=== PATIENT | female | born 1945 | race Caucasian/White ===

== ENCOUNTER → 2018-08-06 | Outpatient (CLI) | payer MEDICARE, OTHER ==
[2018-08-06 15:09] LABS: HEMOGLOBIN 12.5 g/dl (12.0-15.5); MEAN CORPUSCULAR HEMOGLOBIN 30.9 pg (27.0-33.0); MEAN CORPUSCULAR HGB CONC 33.8 g/dl (32.0-36.5); MEAN CORPUSCULAR VOLUME 91.4 fl (80.0-96.0); PLATELET COUNT, AUTOMATED 325 10^3/uL (150-450); RED BLOOD COUNT 4.05 10^6/uL (4.00-5.40); RED CELL DISTRIBUTION WIDTH 15.1 % (11.5-14.5); WHITE BLOOD COUNT 10.9 10^3/uL (4.0-10.0)
[2018-08-06 15:21] LABS: INR 0.97
[2018-08-06 15:39] LABS: ERYTHROCYTE SEDIMENTATION RATE 27 mm/hr (0-30)
[2018-08-06 23:08] LABS: ALBUMIN 3.7 GM/DL (3.2-5.2); ALBUMIN/GLOBULIN RATIO 1.03 (1.00-1.93); ALKALINE PHOSPHATASE 83 U/L (45-117); ALT/SGPT 43 U/L (12-78); ANION GAP 8 MEQ/L (8-16); AST/SGOT 27 U/L (7-37); BILIRUBIN,TOTAL 0.2 MG/DL (0.2-1.0); BLOOD UREA NITROGEN 21 MG/DL (7-18); CALCIUM LEVEL 8.9 MG/DL (8.8-10.2); CARBON DIOXIDE LEVEL 26 MEQ/L (21-32); CHLORIDE LEVEL 104 MEQ/L (98-107); CREATININE FOR GFR 1.06 MG/DL (0.55-1.30); GLOMERULAR FILTRATION RATE 54.4 (>39); GLUCOSE, FASTING 122 MG/DL (70-100); POTASSIUM SERUM 4.1 MEQ/L (3.5-5.1); SODIUM LEVEL 138 MEQ/L (136-145); TOTAL PROTEIN 7.3 GM/DL (6.4-8.2)
== END ==
LOC: M LAB 14:45
DX: Z01.818 Encounter for other preprocedural examination (principal); M17.11 Unilateral primary osteoarthritis, right knee
CPT/HCPCS: 71046

== ENCOUNTER 2018-08-26 05:49 | Inpatient (IN) | payer MEDICARE, OTHER ==
[2018-08-26] MEDS ORDERED: LIDOCAINE 1% MDV 20ML VIAL SQ (06:00)
[2018-08-26] MEDS ORDERED: PROPOFOL 200 MG/20 ML VIAL As Ordered ×2 (06:16→08:48)
[2018-08-26] MEDS ORDERED: LIDOCAINE 2% INJ 100 MG/5 ML SDV (FOR ANES.) As Ordered (06:16)
[2018-08-26] MEDS ORDERED: MIDAZOLAM INJ 2 MG/2 ML VIAL (J2250) As Ordered ×2 (06:19→06:44)
[2018-08-26] MEDS ORDERED: fentaNYL 100 MCG/2 ML INJECTION (J3010) As Ordered (06:44)
[2018-08-26] MEDS: ACETAMINOPHEN 500 MG TAB PO (06:44)
[2018-08-26] MEDS: LR 1,000 ML IV ×4 (07:00→22:30)
[2018-08-26] MEDS: fentaNYL 100 MCG/2 ML INJECTION (J3010) IV (07:04)
[2018-08-26] MEDS: MIDAZOLAM INJ 2 MG/2 ML VIAL (J2250) IV (07:04)
[2018-08-26] MEDS: BUPIVACAINE HCL 0.25% 30 ML VIAL As Ordered (07:16)
[2018-08-26] MEDS: TRANEXAMIC ACID 100 MG/ML 10ML VIAL As Ordered (07:16)
[2018-08-26] MEDS: BUPIVACAINE LIPOSOME/PF 1.3% 20ML VIAL (13.3MG/ML)(EXPAREL)(C9290 PER1MG) As Ordered (07:17)
[2018-08-26] MEDS: EPINEPHrine INJ 1 MG/ML 1ML AMP As Ordered (07:17)
[2018-08-26] MEDS: ceFAZolin 1GM INJ (J0690 PER 500MG) As Ordered (07:17)
[2018-08-26] MEDS ORDERED: ROPIvacaine 0.5% 30 ML INJECTION (J2795 PER 1MG) (07:57)
[2018-08-26] MEDS ORDERED: dexameTHASONE 10 MG/1 ML VIAL PRES.FREE (J1100) (07:57)
[2018-08-26] MEDS ORDERED: BUPIVACAINE/DEXTROSE 0.75% 2 ML AMP As Ordered (08:22)
[2018-08-26] MEDS ORDERED: ePHEDrine SULFATE 25 MG/5 ML(5MG/ML) SYRINGE As Ordered ×2 (08:22)
[2018-08-26] MEDS ORDERED: MORPHINE 10 MG/ML 1ML VIAL (J2270) As Ordered (09:08)
[2018-08-26] MEDS ORDERED: MORPHINE 1MG/ML IN 0.9% NACL 100ML IV BAG As Ordered (09:09)
[2018-08-26] MEDS: MORPHINE 1MG/ML IN 0.9% NACL 100ML IV BAG IV (09:45)
[2018-08-26] MEDS ORDERED: ONDANSETRON 4MG/2ML VIAL (J2405) IV ×2 (10:00)
[2018-08-26] MEDS ORDERED: EPIDURAL/PCA KEYS XX (10:00)
[2018-08-26] MEDS ORDERED: LORATADINE 10 MG TAB PO (10:00)
[2018-08-26] MEDS ORDERED: FLEET ENEMA PR (10:00)
[2018-08-26] MEDS ORDERED: diphenhydrAMINE INJ 50MG/ML VIAL (J1200) IV (10:00)
[2018-08-26] MEDS ORDERED: fentaNYL 100 MCG/2 ML INJECTION (J3010) IV (10:00)
[2018-08-26] MEDS ORDERED: NALBUPHINE HCL 10 MG/ML AMP (J2300) IV (10:00)
[2018-08-26] MEDS ORDERED: NALOXONE INJ 0.4 MG/1 ML VIAL (J2310) IV (10:00)
[2018-08-26] MEDS ORDERED: ACETAMINOPHEN TAB 650MG DOSE (2X325MG) PO (10:00)
[2018-08-26] MEDS: MULTIVITAMINS/MINERALS THERAP 1 TAB PO (11:21)
[2018-08-26] MEDS: MAGNESIUM CHLORIDE 64 MG TABCR (SLO MAG) PO (11:22)
[2018-08-26] MEDS: CitaloPRAM (CeleXA) 10 MG TABLET PO (11:22)
[2018-08-26] MEDS: OMEGA-3 1000MG CAPSULE PO (11:22)
[2018-08-26] MEDS: FOLIC ACID 1 MG TAB PO (11:22)
[2018-08-26] MEDS: VITAMIN D 1,000 INTERNATIONAL UNITS TABLET PO (11:22)
[2018-08-26] MEDS: OCUVITE 1 TAB PO (11:22)
[2018-08-26] MEDS ORDERED: FLUTICASONE PROP 0.05% NASAL SPRAY 16 GM (FLONASE) NARES (11:45)
[2018-08-26] MEDS: FOSINOPRIL 20 MG TAB PO (13:37)
[2018-08-26] MEDS: CHLORTHALIDONE 12.5MG PER 1/2 TABLET PO (13:37)
[2018-08-27] MEDS: LEVOTHYROXINE 75MCG TABLET (0.075MG) PO (05:36)
[2018-08-27] MEDS ORDERED: PERCOCET 5MG/325MG TAB PO (06:30)
[2018-08-27 07:47] LABS: HEMATOCRIT 32.3 % (36.0-47.0); HEMOGLOBIN 10.8 g/dl (12.0-15.5); MEAN CORPUSCULAR HEMOGLOBIN 30.5 pg (27.0-33.0); MEAN CORPUSCULAR HGB CONC 33.4 g/dl (32.0-36.5); MEAN CORPUSCULAR VOLUME 91.2 fl (80.0-96.0); PLATELET COUNT, AUTOMATED 302 10^3/uL (150-450); RED BLOOD COUNT 3.54 10^6/uL (4.00-5.40); RED CELL DISTRIBUTION WIDTH 14.8 % (11.5-14.5); WHITE BLOOD COUNT 16.1 10^3/uL (4.0-10.0)
[2018-08-27 08:16] LABS: ANION GAP 7 MEQ/L (8-16); BLOOD UREA NITROGEN 16 MG/DL (7-18); CALCIUM LEVEL 8.4 MG/DL (8.8-10.2); CARBON DIOXIDE LEVEL 28 MEQ/L (21-32); CHLORIDE LEVEL 99 MEQ/L (98-107); CREATININE FOR GFR 0.86 MG/DL (0.55-1.30); GLOMERULAR FILTRATION RATE > 60.0 (>39); GLUCOSE, FASTING 145 MG/DL (70-100); POTASSIUM SERUM 3.7 MEQ/L (3.5-5.1); SODIUM LEVEL 134 MEQ/L (136-145)
[2018-08-27] MEDS: OMEGA-3 1000MG CAPSULE PO (08:33)
[2018-08-27] MEDS: MAGNESIUM CHLORIDE 64 MG TABCR (SLO MAG) PO (08:34)
[2018-08-27] MEDS: PERCOCET 5MG/325MG TAB PO ×4 (08:34→21:52)
[2018-08-27] MEDS: VITAMIN D 1,000 INTERNATIONAL UNITS TABLET PO (08:35)
[2018-08-27] MEDS: FOSINOPRIL 20 MG TAB PO (08:35)
[2018-08-27] MEDS: SENOKOT S TAB PO ×2 (08:35→21:52)
[2018-08-27] MEDS: CitaloPRAM (CeleXA) 10 MG TABLET PO (08:35)
[2018-08-27] MEDS: ATORVASTATIN 20 MG TAB PO (08:35)
[2018-08-27] MEDS: CHLORTHALIDONE 12.5MG PER 1/2 TABLET PO (08:36)
[2018-08-27] MEDS: FOLIC ACID 1 MG TAB PO (08:37)
[2018-08-27] MEDS: OCUVITE 1 TAB PO (08:37)
[2018-08-27] MEDS: OMEPRAZOLE 20 MG CAP PO (08:37)
[2018-08-27] MEDS: MULTIVITAMINS/MINERALS THERAP 1 TAB PO (08:37)
[2018-08-27] MEDS: MIRALAX *UNIT DOSE* 17GM PACKET PO (08:38)
[2018-08-27] MEDS: MOM 30ML SUSPENSION UDC PO (08:38)
[2018-08-27] MEDS ORDERED: NON-FORMULARY 1 EA EA (09:00)
[2018-08-27] MEDS ORDERED: CHLORTHALIDONE 25 MG TAB PO (09:00)
[2018-08-27] MEDS: ONDANSETRON 4 MG TAB (S0181) PO ×3 (13:18→21:51)
[2018-08-27] MEDS: RIVAROXABAN 10 MG TAB (XARELTO) PO (18:00)
[2018-08-28] MEDS: ONDANSETRON 4 MG TAB (S0181) PO ×3 (02:36→14:29)
[2018-08-28] MEDS: PERCOCET 5MG/325MG TAB PO ×3 (02:37→14:28)
[2018-08-28] MEDS: LEVOTHYROXINE 75MCG TABLET (0.075MG) PO (05:55)
[2018-08-28 06:13] LABS: HEMATOCRIT 29.6 % (36.0-47.0); HEMOGLOBIN 9.7 g/dl (12.0-15.5); MEAN CORPUSCULAR HEMOGLOBIN 29.3 pg (27.0-33.0); MEAN CORPUSCULAR HGB CONC 32.8 g/dl (32.0-36.5); MEAN CORPUSCULAR VOLUME 89.4 fl (80.0-96.0); PLATELET COUNT, AUTOMATED 273 10^3/uL (150-450); RED BLOOD COUNT 3.31 10^6/uL (4.00-5.40); RED CELL DISTRIBUTION WIDTH 14.6 % (11.5-14.5); WHITE BLOOD COUNT 16.1 10^3/uL (4.0-10.0)
[2018-08-28 06:18] LABS: ANION GAP 7 MEQ/L (8-16); BLOOD UREA NITROGEN 14 MG/DL (7-18); CALCIUM LEVEL 8.5 MG/DL (8.8-10.2); CARBON DIOXIDE LEVEL 28 MEQ/L (21-32); CHLORIDE LEVEL 96 MEQ/L (98-107); CREATININE FOR GFR 0.78 MG/DL (0.55-1.30); GLOMERULAR FILTRATION RATE > 60.0 (>39); GLUCOSE, FASTING 132 MG/DL (70-100); POTASSIUM SERUM 3.4 MEQ/L (3.5-5.1); SODIUM LEVEL 131 MEQ/L (136-145)
[2018-08-28] MEDS: OMEGA-3 1000MG CAPSULE PO (07:57)
[2018-08-28] MEDS: FOSINOPRIL 20 MG TAB PO (07:58)
[2018-08-28] MEDS: CHLORTHALIDONE 12.5MG PER 1/2 TABLET PO (07:58)
[2018-08-28] MEDS: FOLIC ACID 1 MG TAB PO (07:58)
[2018-08-28] MEDS: OCUVITE 1 TAB PO (07:59)
[2018-08-28] MEDS: OMEPRAZOLE 20 MG CAP PO (07:59)
[2018-08-28] MEDS: SENOKOT S TAB PO (07:59)
[2018-08-28] MEDS: VITAMIN D 1,000 INTERNATIONAL UNITS TABLET PO (08:00)
[2018-08-28] MEDS: MULTIVITAMINS/MINERALS THERAP 1 TAB PO (08:00)
[2018-08-28] MEDS: MIRALAX *UNIT DOSE* 17GM PACKET PO (08:00)
[2018-08-28] MEDS: CitaloPRAM (CeleXA) 10 MG TABLET PO (08:00)
[2018-08-28] MEDS: MAGNESIUM CHLORIDE 64 MG TABCR (SLO MAG) PO (08:00)
[2018-08-28] MEDS: MOM 30ML SUSPENSION UDC PO (08:04)
== END 2018-08-28 16:15 | disposition home health service (06) | DRG 470 ==
LOC: M OR 05:49 → M MS5PR 10:10
PROC: 0SRC0J9 Replacement of Right Knee Joint with Synthetic Substitute, Cemented, Open Approach (ICD-10-PCS; principal; 2018-08-26 07:26)
DX: M17.11 Unilateral primary osteoarthritis, right knee (principal); Z79.899 Other long term (current) drug therapy; I10 Essential (primary) hypertension; E78.5 Hyperlipidemia, unspecified; E03.9 Hypothyroidism, unspecified; K21.9 Gastro-esophageal reflux disease without esophagitis; M06.9 Rheumatoid arthritis, unspecified

== ENCOUNTER → 2019-02-04 | Outpatient (CLI) | payer MEDICARE, OTHER ==
[~2019-02-04] MED LIST: AMLO5TAB6 PO; CHLO25TA PO; CITA10TA6 PO; CLAR10CA3 PO; FISH120016 PO; FOLI1TAB11 PO; FOSI40TA3 PO; INFL10VL IV; LEVO75TA4 PO; LIPI20TA PO; MELO15TA28 PO; METH2.5T48 PO; MULT1TAB10 PO; MULTCAP PO; NASA1SPR; OCUVTAB4 PO; OMEP40CA2 PO; PERC5TAB12 PO; SLOWTAB2 PO; VITA100067 PO; VITAD1000T PO; XARE10TA PO
[2019-02-04 12:24] LABS: ALBUMIN 3.9 GM/DL (3.2-5.2); ALT/SGPT 46 U/L (12-78); BILIRUBIN,TOTAL 0.3 MG/DL (0.2-1.0); BLOOD UREA NITROGEN 20 MG/DL (7-18); CALCIUM LEVEL 9.4 MG/DL (8.8-10.2); CARBON DIOXIDE LEVEL 26 MEQ/L (21-32); CHLORIDE LEVEL 104 MEQ/L (98-107); CHOLESTEROL LEVEL 208 MG/DL (<200); CHOLESTEROL RISK RATIO 3.151 (<5); CREATININE FOR GFR 0.93 MG/DL (0.55-1.30); GLOMERULAR FILTRATION RATE > 60.0 (>39); GLUCOSE, FASTING 113 MG/DL (70-100); HDL CHOLESTEROL 66 MG/DL (>40); LDL CHOLESTEROL 109 MG/DL (<100); NON-HDL-C 142 MG/DL; POTASSIUM SERUM 4.7 MEQ/L (3.5-5.1); SODIUM LEVEL 136 MEQ/L (136-145); TOTAL PROTEIN 7.8 GM/DL (6.4-8.2); TRIGLYCERIDES LEVEL 165 MG/DL (<150)
[2019-02-04 12:28] LABS: HEMOGLOBIN A1c 6.8 %
[2019-02-04 12:59] LABS: MALB URINE SIEMENS < 5.0 MG/L; MAU/CREAT RATIO 5.4 MCG/MG (0.0-30.0)
== END ==
LOC: M LAB 10:53
PROVIDERS: ATTEND Internal Medicine
DX: I10 Essential (primary) hypertension (principal); R73.01 Impaired fasting glucose; E78.00 Pure hypercholesterolemia, unspecified; E03.9 Hypothyroidism, unspecified

== ENCOUNTER → 2019-02-04 | Outpatient (CLI) | payer MEDICARE, OTHER ==
[2019-02-04 11:34] LABS: HEMATOCRIT 39.5 % (36.0-47.0); HEMOGLOBIN 12.9 g/dl (12.0-15.5); MEAN CORPUSCULAR HEMOGLOBIN 30.3 pg (27.0-33.0); MEAN CORPUSCULAR HGB CONC 32.7 g/dl (32.0-36.5); MEAN CORPUSCULAR VOLUME 92.7 fl (80.0-96.0); PLATELET COUNT, AUTOMATED 400 10^3/uL (150-450); RED BLOOD COUNT 4.26 10^6/uL (4.00-5.40); WHITE BLOOD COUNT 10.9 10^3/uL (4.0-10.0)
[2019-02-04 11:52] LABS: PROTHROMBIN TIME 13.3 SECONDS (12.1-14.4)
[2019-02-04 12:06] LABS: ALBUMIN 3.7 GM/DL (3.2-5.2); ALT/SGPT 47 U/L (12-78); BILIRUBIN,TOTAL 0.3 MG/DL (0.2-1.0); BLOOD UREA NITROGEN 21 MG/DL (7-18); CALCIUM LEVEL 9.3 MG/DL (8.8-10.2); CARBON DIOXIDE LEVEL 27 MEQ/L (21-32); CHLORIDE LEVEL 104 MEQ/L (98-107); GLOMERULAR FILTRATION RATE > 60.0 (>39); GLUCOSE, FASTING 115 MG/DL (70-100); POTASSIUM SERUM 4.8 MEQ/L (3.5-5.1); SODIUM LEVEL 138 MEQ/L (136-145); TOTAL PROTEIN 7.8 GM/DL (6.4-8.2)
--- NOTE | 2019-02-04 13:18 | REP ---
Chest x-ray: Two views. History: Left knee arthritis. Preop. Comparison study: August 06, 2018. Findings: The lungs are well inflated and remain clear. The pleural angles are sharp. Cardiomediastinal silhouette is unremarkable. There are degenerative disc changes in the thoracic spine as before. No acute bony abnormality is seen. Pulmonary vasculature is not increased. Impression: No active disease. Electronically Signed by Feliciano Agudelo MD 02/04/2019 01:09 P
[2019-02-04 14:10] LABS: ERYTHROCYTE SEDIMENTATION RATE 34 mm/hr (0-30)
--- NOTE | 2019-02-04 21:41 | ECGEPIP ---
Stationary ECG Study [facility] Test Date: 2019-02-04 Pat Name: NANCI ARIZA Department: Room: - Gender: F Director Of Loss Prevention: ELMA : 1945 Requested By: Jeff Green Order Number: [id number] Reading MD: Isauro Bravo Measurements Intervals [place] Rate: 91 P: 51 CO: 162 QRS: 9 QRSD: 88 T: 48 QT: 355 QTc: 437 Interpretive Statements SINUS RHYTHM WITH OCCASIONAL VENTRICULAR PREMATURE COMPLEXES Inferior Q waves of uncertain significance Nonspecific ST-T wave abnormalities Electronically Signed On 02-04-2019 21:40:28 EDT by Isauro Bravo
== END ==
LOC: M LAB 10:44
PROVIDERS: ATTEND Orthopaedic Surgery
DX: Z01.818 Encounter for other preprocedural examination (principal); M17.12 Unilateral primary osteoarthritis, left knee; I10 Essential (primary) hypertension; R73.01 Impaired fasting glucose; E78.00 Pure hypercholesterolemia, unspecified

== ENCOUNTER 2019-02-24 09:02 | Inpatient (IN) | payer MEDICARE, OTHER ==
--- NOTE | 2019-02-14 15:30 | HPE ---
DATE OF ADMISSION: 02/24/2019 CHIEF COMPLAINT: Left knee pain. HISTORY OF PRESENT ILLNESS: This is a pleasant, 73-year-old female with progressively worsening left knee pain and stiffness. She has failed to improve with conservative treatment. She has elected for surgery for her continued symptoms. She has pain with weightbearing activities and her activities of daily living. X-rays of her knee are notable for advanced osteoarthritis of the left knee joint. She has consented for a left total knee arthroplasty by Dr. Peter Mike. Medical optimization was performed by Dr. Olsen. ALLERGIES: NONE. CURRENT MEDICATIONS: - folic acid 1 mg a day - omeprazole 40 mg a day - amlodipine 5 mg one-half once a day - fosinopril 40 mg once a day - chlorthalidone 25 mg half a tablet every day - fish oil 1200 mg 2 capsules once a day - Synthroid 75 mcg once a day - multivitamin - PreserVision twice a day - vitamin D 2000 units a day - sublingual magnesium two a day - citalopram 10 mg every other day - Lipitor 20 mg once a day - methotrexate 2.5 mg once a week - Remicade 700 mg every 2 months - meloxicam 15 mg as needed - Claritin 10 mg as needed - Nasacort as needed PAST MEDICAL HISTORY: Includes hypertension, hyperlipidemia, and hypothyroidism. PAST SURGICAL HISTORY: Includes cataract removal both eyes, thyroidectomy, and previous right total knee arthroplasty. SOCIAL HISTORY: Amanda is retired. She does not smoke and she rarely drinks alcohol. Family history is noncontributory. REVIEW OF SYSTEMS: This patient denies chest pain, heart palpitations, cough, wheezing, difficulty breathing and shortness of breath. She denies abdominal pain, nausea, vomiting, diarrhea or constipation. She denies recent upper respiratory infection or urinary tract infection symptoms. She does complain of persistent pain in the left knee. PHYSICAL EXAMINATION: General: She is well-nourished, well-developed, in no acute distress, alert female patient. She ambulates with a moderate limp favoring her left lower extremity. She is not using assistive devices. Vital signs: She is 5 feet 7-1/2 inches tall, weighs 207.2 pounds with a temperature of 98.8, blood pressure 120/50, pulse 68, and respirations of 12. Neck was supple without adenopathy or jugular venous distension. There were no carotid bruits appreciated upon auscultation. Lungs are clear to auscultation without rales or wheeze throughout. Heart: Regular rate and rhythm without murmurs, gallops or rubs. Abdomen: Bowel sounds were present. Extremities: Examination of the knee revealed intact skin. She had decreased range of motion secondary to pain and stiffness. The limb was neurovascularly intact. LABORATORY DATA: Chest x-ray showed no acute cardiopulmonary disease processes. EKG showed sinus rhythm with an occasional premature ventricular contraction (PVC). Glucose 115, BUN 21, creatinine 0.90, sodium 138, potassium 4.8. ProTime 13.3, INR 1.00. White count 10.9, red cell distribution width 15.3, and sed rate of 34. Otherwise, CBC was within normal limits. IMPRESSION: Symptomatic osteoarthritis of the left knee joint. PLAN: Consented for a left total knee arthroplasty by Dr. Peter Mike.
[2019-02-24] VITALS (7 sets, daily range): BP systolic 129–175; BP diastolic 62–82
[~2019-02-24] VITALS: Ht 172.7 cm; Wt 94.7 kg
[2019-02-24] MEDS: MAGNESIUM CHLORIDE 64 MG TABCR (SLO MAG) PO SCH (09:00)
[~2019-02-24 09:02] MED LIST changes: +ACETAMINOPHEN 500 MG TAB PO ONE; +LR 1,000 ML IV SCH
[2019-02-24] MEDS ORDERED: MIDAZOLAM INJ 2 MG/2 ML VIAL (J2250) As Ordered ONE (10:28)
[2019-02-24] MEDS ORDERED: fentaNYL 100 MCG/2 ML INJECTION (J3010) As Ordered ONE ×2 (10:28→12:01)
[2019-02-24] MEDS ORDERED: MIDAZOLAM INJ 2 MG/2 ML VIAL (J2250) IV ONE (11:30)
[2019-02-24] MEDS ORDERED: CLINDAMYCIN INJ 900MG/6ML VIAL As Ordered ONE ×2 (11:32→11:54)
[2019-02-24] MEDS ORDERED: BUPIVACAINE LIPOSOME/PF 1.3% 20ML VIAL (13.3MG/ML)(EXPAREL)(C9290 PER1MG) As Ordered ONE (11:32)
[2019-02-24] MEDS ORDERED: BUPIVACAINE HCL 0.25% 10 ML VIAL As Ordered ONE (11:32)
[2019-02-24] MEDS ORDERED: TRANEXAMIC ACID 100 MG/ML 10ML VIAL As Ordered ONE (11:32)
[2019-02-24] MEDS ORDERED: EPINEPHrine INJ 1 MG/ML 1ML AMP As Ordered ONE (11:32)
[2019-02-24] MEDS ORDERED: fentaNYL 100 MCG/2 ML INJECTION (J3010) IV ONE (12:00)
[2019-02-24] MEDS ORDERED: PROPOFOL 200 MG/20 ML VIAL As Ordered ONE (12:31)
[2019-02-24] MEDS ORDERED: BUPIVACAINE/DEXTROSE 0.75% 2 ML AMP As Ordered ONE (12:31)
[2019-02-24] MEDS ORDERED: ONDANSETRON 4MG/2ML VIAL (J2405) As Ordered ONE (12:31)
[2019-02-24] MEDS ORDERED: dexameTHASONE 4 MG/ML 1ML VIAL (J1100) As Ordered ONE (12:31)
[2019-02-24] MEDS ORDERED: LIDOCAINE 2% INJ 100 MG/5 ML SDV (FOR ANES.) As Ordered ONE (12:31)
[2019-02-24] MEDS ORDERED: KETAMINE HCL 200 MG/20 ML VIAL As Ordered ONE (13:08)
[2019-02-24] MEDS ORDERED: KETOROLAC 60 MG/2 ML VIAL (J1885) As Ordered ONE (13:27)
[2019-02-24] MEDS ORDERED: PHENYLephrine HCL 500 MCG/5 ML (100MCG/ML) SYRINGE (J2370) As Ordered ONE (13:31)
--- NOTE | 2019-02-24 14:04 | RO ---
DATE OF PROCEDURE: 02/24/2019 PREPROCEDURE DIAGNOSIS: Left knee valgus degenerative tricompartmental arthritis. POSTPROCEDURE DIAGNOSIS: Left knee valgus degenerative tricompartmental arthritis. PROCEDURE: Left total knee arthroplasty using a size 5 cruciate retaining femoral component cemented and a size 5 tibial tray and a 8 mm rotating platform polyethylene insert, and a 35 mm polyethylene button. All components were cemented. Prosthesis made by [employer]. It was an Attune knee. SURGEON: Jeff Mike MD MEAT LUGGER: Mr. Wicho Dubose ANESTHESIA: Spinal with left femoral nerve block. COMPLICATIONS: None. ESTIMATED BLOOD LOSS: 20 mL. SPECIMENS: Joint surface. TOURNIQUET TIME: 53 minutes. DESCRIPTION OF PROCEDURE: Antibiotics were given intravenously preoperatively and a successful left femoral nerve block, then spinal anesthetic was induced. Tourniquet placed on the left upper thigh and not inflated. Left lower extremity was carefully prepped and draped in the usual sterile fashion. The leg was elevated, and after appropriate time-out, the tourniquet was inflated to 250 mmHg. A longitudinal incision was made for a medial parapatellar approach to the knee. Bovie cautery was used to coagulate the crossing vessels. Medial parapatellar arthrotomy was performed. Subperiosteal dissection around the proximal, medial and lateral tibia plateau was performed. The patella was everted. The knee was flexed. The anterior cruciate ligament (ACL) was debrided. A drill was placed down the center of the femoral canal followed by the intramedullary fermin and the distal femoral cutting jig set at 5 degree valgus but for a left knee at 9 mm resection level. The block was pinned into position, and then the distal femoral cut performed. I took just enough I felt laterally, but it was quite thin laterally to be expected from this valgus knee. AP sizing jig measured for a size 5, 3 degrees of external rotation were dialed in to be sure that we did not artificially internally rotate the femoral component. The pins were placed. 4-in-1 block applied. The anterior, posterior and chamfer cuts were performed. The jig for the notch plasty was set onto the femur and notch plasty performed. We then exposed the proximal tibia. Used the extramedullary alignment jig to estimate being parallel to the mechanical axis, referencing off the medial tibial condyle at 10 mm and this corresponded to about 3 mm resection off the lateral tibial condyle, which was quite dished. Block was pinned. A secondary check with the extramedullary fermin confirmed that we appeared to be parallel to the mechanical axis. The proximal tibial osteotomy was performed. Lamina catcher helper was then placed laterally and we performed a completion medial meniscectomy with debridement of the posterior and medial osteophytes. We then placed the lamina catcher helper medially and performed a completion lateral meniscectomy with debridement of posterior and lateral osteophytes. Spacer block fit best at 8 mm with good stability and symmetry to varus and valgus stress testing in both flexion and in extension. We then exposed the proximal tibia and sized for a #5 tibial tray, which was pinned into position, followed by the reamer and broach. Trial femoral component was placed, brought the knee into extension, everted the patella, performed patellar osteotomy. Sized for a 35 button. Lug holes drilled. Trial placed. Patellofemoral tracking was anatomic. We drilled the lug holes for the femur. Removed all the trial components. Exparel was placed in the subperiosteal tissues around the distal femur and the proximal tibia. Pk Renaystefaniahipolito mixed the cement on the back table as I prepared the bony surfaces for cementing with a copious amount of pulsatile lavage irrigant solution. Pk Renaystefaniahipolito was also critical to the success of this difficult surgery by helping to manipulate the knee, apply appropriate soft tissue retraction, helped to close the wound, helped to mix the cement, amongst many other tasks to allow me to perform the surgery safely, efficiently and accurately. After all the bony surfaces were dried thoroughly, we then cemented the tibial tray, removed excess cement. Placed the polyethylene. Cemented the femoral component and removed excess cement. Brought the knee into extension. Cemented the patellar button, clamped it and removed excess cement. Held the knee in extension in this position until the cement hardened, as we were awaiting this, we copiously pulsatile lavage, irrigated out the knee joint once again. I then applied tranexamic acid. I closed the apex of the arthrotomy with two #1 PDS sutures. Medial parapatellar area was closed with a #1 PDS suture. The capsule was closed with a running double armed #1 Stratafix. The tourniquet was released. We irrigated between layers. Closed the deep subdermal tissues with interrupted #2-0 PDS suture. Skin was closed with leanne covered by Optifoam, dry sterile bulky dressing. She was then transferred to the recovery room in stable condition. There were no intraoperative complications.
[2019-02-24] MEDS ORDERED: MORPHINE 10 MG/ML 1ML VIAL (J2270) IV PRN (14:15)
[2019-02-24] MEDS ORDERED: LR 1,000 ML IV SCH ×2 (14:15→14:30)
[2019-02-24] MEDS ORDERED: PERCOCET 5MG/325MG TAB PO PRN (14:15)
[2019-02-24] MEDS ORDERED: HYDROMORPHONE HCL 0.5 MG/ 0.5 ML SYRINGE (J1170 PER 1) IV PRN (14:15)
[2019-02-24] MEDS ORDERED: ONDANSETRON 4MG/2ML VIAL (J2405) IV PRN (14:15)
[2019-02-24] MEDS ORDERED: fentaNYL 100 MCG/2 ML INJECTION (J3010) IV PRN (14:15)
[2019-02-24] MEDS ORDERED: METOCLOPRAMIDE INJ 10MG/2ML VIAL (J2765) IV PRN (14:15)
[2019-02-24] MEDS ORDERED: ACETAMINOPHEN TAB 650MG DOSE (2X325MG) PO PRN (14:30)
[2019-02-24] MEDS ORDERED: FLEET ENEMA PR PRN (14:30)
--- NOTE | 2019-02-24 14:43 | REP ---
AP AND LATERAL, LEFT KNEE: HISTORY: Postoperative. The patient is status post left total knee replacement. There is no acute fracture or dislocation. Subcutaneous air and surgical leanne are present in the overlying soft tissue. IMPRESSION: The patient is status post left total knee replacement. There is anatomic alignment. Electronically Signed by Lv Stratton MD 02/24/2019 02:45 P
[2019-02-24] MEDS ORDERED: LORATADINE 10 MG TAB PO PRN (15:15)
[2019-02-24] MEDS ORDERED: FLUTICASONE PROP 0.05% NASAL SPRAY 16 GM (FLONASE) NARES PRN (15:15)
--- NOTE | 2019-02-24 15:27 | CR.PDOC ---
General Date of Consultation: February 24, 2019 Referring Provider: Jeff Mike Primary Care Physician: Bill Olsen Attending Physician: JOSE G GARCIA MD Consultation REASON FOR CONSULTATION/CHIEF COMPLAINT: Management of patients chronic medical conditions post op HISTORY OF PRESENT ILLNESS: Patient is a 73 year old female with a past medical history significant for hypertension, hyperlipidemia, depression, and hypothyroidism who presented to [facility] for elective left total knee arthroplasty. Patient states that at this time she has no pain. She denies any history of pulmonary disease. She denies any history of Obstructive sleep apnea. She denies any cardiac conditions with exception to hypertension. She states that she feels well right now and her pain is adequately controlled. There were no adverse events during her procedure ALLERGIES: Please see below. HOME MEDICATIONS: Please see below. PAST MEDICAL HISTORY: 1. Hypertension 2. Hypothyroidism 3. Hyperlipidemia 4. GERD 5. Depression/Anxiety 6. Cataracts 7. Rheumatoid Arthritis PAST SURGICAL HISTORY: 1. Cataract Removal 2. Thyroidectomy 3. Right total knee arthroplasty 6 months ago 4. Left total knee arthroplasty FAMILY HISTORY: Noncontributory SOCIAL HISTORY: Retired. Denies tobacco use. Occasional/rare alcohol use REVIEW OF SYSTEMS: CONSTITUTIONAL: Denies fevers, chills, nightsweats, unintentional weight loss or weight gain HEENT: Denies cough. Denies sore throat. Denies dysphagia CARDIOVASCULAR: Denies chest pain, palpitations, or feelings of the heart racing RESPIRATORY: Denies shortness of breath. Denies cough GENITOURINARY: Denies increased frequency. Denies dysuria MUSCULOSKELETAL: Admits to chronic left knee pain. GASTROINTESTINAL: Denies abdominal pain, nausea, vomiting, diarrhea, or constipation SKIN: Denies rashes or lesions NEUROLOGICAL: Denies changes in speech or gait. Denies changes in balance. PSYCHIATRIC: Admits to history of depression and anxiety ENDOCRINE: Denies heat intolerance. Denies cold intolerance HEMATOLOGIC/LYMPHATIC: Denies easy bruising or bleeding. Denies history of blood clots in the legs or lungs ALLERGIC/IMMUNOLOGIC: Admits to seasonal allergies PHYSICAL EXAMINATION: VITAL SIGNS: Please see below. GENERAL APPEARANCE: Awake, alert, and oriented. Appears in no acute distress. Lying comfortably in exam bed. HEENT: Atrumatic, normocephalic. Eyes are nonicteric. Trachea is midline. Dentition is fair. Mucous membranes are pink and moist RESPIRATORY: Clear vesicular breath sounds bilaterally with good respiratory effort. No wheezes, rhonci, or rales. CARDIOVASCULAR: Normal S1, S2. Regular rate and rhythm. No clicks, rubs, or murmurs ABDOMEN: Soft, nondistended, nontender to palpation of all 4 quadrants. No rebound tenderness or guarding. Positive bowel sounds throughout EXTREMITIES: No edema. Full and equal pulses in bilateral upper and lower extremities. NEUROLOGICAL: No focal neurological deficits PSYCHIATRIC: Mood and affect appear appropriate LABORATORY DATA: Please see below. ASSESSMENT/PLAN: 1. s/P Left Total Knee Arthroplasty -Patient received an elective left total knee arthroplasty today. There were no adverse events during her procedure. She is being managed by orthopedic surgery -Anticoagulation and pain medication management per Orthopedic surgery. 2. Hypertension -Patient is post-op. Her blood pressure is currently acceptable. She is on Norvasc, Chlorthalidone, and Fosinopril at home. Will hold her home medications. Likely resume tomorrow AM 3. Hypothyroidism -Patient is hypothyroid 2/2 thyroidectomy. Will continue her home synthroid 4. Hyperlipidemia -Patient is on Atorbastatin 20 mg Q2D. Will continue 5. Hypomagnesemia -Patient has history of low magnesium. She takes Magnesium Chloride PO at home. Will continue. -Will monitor electrolytes 6. Seasonal Allergies -Loratadine 10mg -Patient is on Nasacort PRN congestion at home. Will substitute Flonase. 7. Rheumatoid Arthritis -Patient receives Methotrexate, Infliximab Inj, and Meloxicam. -Will hold while hospitalized 8. Depression/Anxiety -Will continue Citalopram 9. GERD -Omeprazole 40mg 10 DVT prophylaxis -Patients anticoagulation is managed by Orthopedics. -Xarelto 10 mg Disposition: Patient has been medical optimized while in the hospital post operatively. Consultation by Orthopedics is greatly appreciated. Vital Signs/I&O Vital Signs Date Time Temp Pulse Resp B/P (MAP) Pulse Ox O2 Delivery O2 Flow Rate FiO2 02/24/19 14:40 84 16 128/62 (84) 96 02/24/19 14:25 97.6 02/24/19 14:10 2 Allergies Coded Allergies: meperidine (Verified Adverse Reaction, Intermediate, passed out, 02/24/19) Penicillins (Verified Adverse Reaction, Mild, potential kidney issues with methotrexate, 02/24/19) Home Medications Scheduled Amlodipine Besylate (Amlodipine Besylate) 5 Mg Tab, 2.5 MG PO QHS, (Reported) Atorvastatin Calcium (Lipitor) 20 Mg Tab, 20 MG PO Q2D, (Reported) Chlorthalidone (Chlorthalidone) 25 Mg Tab, 12.5 MG PO DAILY, (Reported) Citalopram Hydrobromide (Citalopram HBr) 10 Mg Tab, 10 MG PO DAILY, (Reported) Folic Acid (Folic Acid) 1 Mg Tab, 1 MG PO DAILY, (Reported) Fosinopril Sodium (Fosinopril Sodium) 40 Mg Tab, 40 MG PO DAILY, (Reported) Infliximab Injection (Remicade) 100 Mg/10 Ml Vial, 700 MG IV ASDIRECTED, (Reported) Levothyroxine Sodium (Levothyroxine Sodium) 75 Mcg Tab, 75 MCG PO DAILY, (Reported) Magnesium Chloride (Slow-Mag) 1 Tab Tab, 2 TAB PO DAILY, (Reported) Methotrexate Sodium (Methotrexate) 2.5 Mg Tab, 12.5 MG PO QWEEK, (Reported) Multivitamin (Multivitamins) 1 Each Capsule, 1 CAP PO DAILY, (Reported) Parkin-3S/Dha/Epa/Fish Oil (Fish Oil EC 1,200 mg Softgel) 1 Cap Cap, 2 CAP PO DAILY, (Reported) Omeprazole (Omeprazole) 40 Mg Cap, 40 MG PO DAILY, (Reported) Rivaroxaban (Xarelto) 10 Mg Tablet, 10 MG PO DAILY for 12 Days, #12 Vit A/Vit C/Vit E/Zinc/Copper (Preservision Areds Tablet) 1 Tab Tab, 2 TAB PO DAILY, (Reported) Vitamin D (Vitamin D3) 1,000 Unit Tablet, 1,000 UNITS PO DAILY, (Reported) Scheduled PRN Loratadine (Claritin) 10 Mg Cap, 10 MG PO DAILYPRN PRN for NASAL CONGESTION, (Reported) Oxycodone HCl/Acetaminophen (Percocet 5-325 mg Tablet) 1 Each Tablet, 1 TAB PO Q4H PRN for PAIN, #30 Triamcinolone Acetonide (Nasacort) 55 Mcg/Act Spr, 55 MCG NA DAILYPRN PRN for NASAL CONGESTION, (Reported) GME ATTESTATION GME ATTESTATION My faculty preceptor for this patient encounter was physically present during the encounter and was fully available. All aspects of the patient interview, examination, medical decision making process, and medical care plan development were reviewed and approved by the faculty preceptor. The faculty preceptor is aware and concurs with the plan as stated in the body of this note and will attest to such by his/her cosignature. ATTENDING NOTE I performed a history and physical examination of the patient and discussed their management with the resident. I reviewed the resident's note and agree with the documented findings and plan of care. EDMAR HARRELL DO February 24, 2019 15:27 JOSE G GARCIA MD February 27, 2019 13:12
[2019-02-24] MEDS: FOLIC ACID 1 MG TAB PO SCH (16:03)
[2019-02-24] MEDS: VITAMIN D 1,000 INTERNATIONAL UNITS TABLET PO SCH (16:03)
[2019-02-24] MEDS: OCUVITE 1 TAB PO SCH (16:03)
[2019-02-24] MEDS: HYDROMORPHONE HCL 0.5 MG/ 0.5 ML SYRINGE (J1170 PER 1) IV PRN ×2 (16:05→20:44)
[2019-02-25] MEDS: HYDROMORPHONE HCL 0.5 MG/ 0.5 ML SYRINGE (J1170 PER 1) IV PRN (02:57)
[2019-02-25 03:00] VITALS: BP 135/66
[2019-02-25] MEDS ORDERED: ONDANSETRON 4 MG TAB (S0181) PO PRN (06:00)
[2019-02-25] MEDS ORDERED: PERCOCET 5MG/325MG TAB PO PRN ×2 (06:00)
[2019-02-25] MEDS: LEVOTHYROXINE 75MCG TABLET (0.075MG) PO SCH (06:05)
[2019-02-25 06:19] LABS: HEMATOCRIT 31.8 % (36.0-47.0); HEMOGLOBIN 10.7 g/dl (12.0-15.5); MEAN CORPUSCULAR HEMOGLOBIN 30.8 pg (27.0-33.0); MEAN CORPUSCULAR HGB CONC 33.6 g/dl (32.0-36.5); MEAN CORPUSCULAR VOLUME 91.6 fl (80.0-96.0); PLATELET COUNT, AUTOMATED 289 10^3/uL (150-450); RED BLOOD COUNT 3.47 10^6/uL (4.00-5.40); WHITE BLOOD COUNT 21.1 10^3/uL (4.0-10.0)
[2019-02-25 06:33] LABS: INR 1.03; PROTHROMBIN TIME 13.6 SECONDS (12.1-14.4)
[2019-02-25 06:38] LABS: BLOOD UREA NITROGEN 15 MG/DL (7-18); CALCIUM LEVEL 8.6 MG/DL (8.8-10.2); CARBON DIOXIDE LEVEL 25 MEQ/L (21-32); CHLORIDE LEVEL 105 MEQ/L (98-107); CREATININE FOR GFR 0.86 MG/DL (0.55-1.30); GLOMERULAR FILTRATION RATE > 60.0 (>39); GLUCOSE, FASTING 117 MG/DL (70-100); SODIUM LEVEL 137 MEQ/L (136-145)
[2019-02-25] MEDS ORDERED: XARE10TA PO (07:02)
[2019-02-25] MEDS ORDERED: PERC5TAB12 PO (07:02)
[2019-02-25] MEDS: OCUVITE 1 TAB PO SCH (08:32)
[2019-02-25] MEDS: VITAMIN D 1,000 INTERNATIONAL UNITS TABLET PO SCH (08:32)
[2019-02-25] MEDS: CitaloPRAM (CeleXA) 10 MG TABLET PO SCH (08:33)
[2019-02-25] MEDS: FOLIC ACID 1 MG TAB PO SCH (08:33)
[2019-02-25] MEDS: OMEPRAZOLE 20 MG CAP PO SCH (08:33)
[2019-02-25] MEDS: MOM 30ML SUSPENSION UDC PO SCH (08:33)
[2019-02-25] MEDS: MIRALAX *UNIT DOSE* 17GM PACKET PO SCH (08:33)
[2019-02-25] MEDS: MAGNESIUM CHLORIDE 64 MG TABCR (SLO MAG) PO SCH (09:00)
[2019-02-25] MEDS ORDERED: NORCO, ANEXSIA 5/325MG TABLET (HYDROcodone/ACETAMINOPHEN) PO PRN (11:00)
[2019-02-25] MEDS: NORCO, ANEXSIA 5/325MG TABLET (HYDROcodone/ACETAMINOPHEN) PO PRN ×3 (13:20→22:08)
[2019-02-25 14:00] VITALS: BP 136/80
--- NOTE | 2019-02-25 16:21 | IPNPDOC ---
Date Seen The patient was seen on 02/25/19. Progress Note SUBJECTIVE: Patient was seen and examined this morning. No new complaints. She is working with physical therapy. She denies chest pain, shortness of breath, nausea, vomiting, diarrhea, or constipation. OBJECTIVE PHYSICAL EXAMINATION: VITAL SIGNS: Please see below. GENERAL: Awake, alert and oriented. Appears in no acute distress HEENT: Atrumatic normocephalic eyes are nonicteric. Trachea is midlne CARDIOVASCULAR: Normal S1, S2. Regular rate and rhythm. No clicks, rubs, or murmurs. RESPIRATORY: Clear vesicular breath sounds bilaterally with good respiratory effort. No wheezes, rhonci, or rales ABDOMINAL: Soft, nondistended, nontender to palpation of all 4 quadrants. No rebound tenderness or guarding. Positive bowel sounds EXTREMITIES: No edema. Full and equal pulses in bilateral upper and lower extremities NEUROLOGICAL: No focal neurological deficits PSYCHOLOGICAL: Mood and affect appear appropriate LABORATORY DATA, IMAGING STUDIES, MICROBIOLOGY: Please see below. DVT prophylaxis ordered?: YES ASSESSMENT AND PLAN: 1. s/P Left Total Knee Arthroplasty Post-op Day 1 -Patient received an elective left total knee arthroplasty today. There were no adverse events during her procedure. She is being managed by orthopedic surgery -Anticoagulation and pain medication management per Orthopedic surgery. 2. Hypertension -Patient is post-op Day 1. Her blood pressure is currently acceptable. -Will likely resume her BP medication tomorrow AM -If the patient becomes hypertensive will restart Norvasc 3. Hypothyroidism -Patient is hypothyroid 2/2 thyroidectomy. Will continue her home synthroid 4. Hyperlipidemia -Patient is on Atorbastatin 20 mg Q2D. Will continue 5. Hypomagnesemia -Patient has history of low magnesium. She takes Magnesium Chloride PO at home. Will continue. -Will monitor electrolytes 6. Seasonal Allergies -Loratadine 10mg -Patient is on Nasacort PRN congestion at home. Will substitute Flonase. 7. Rheumatoid Arthritis -Patient receives Methotrexate, Infliximab Inj, and Meloxicam. -Will hold while hospitalized 8. Depression/Anxiety -Will continue Citalopram 9. GERD -Omeprazole 40mg 10 DVT prophylaxis -Patients anticoagulation is managed by Orthopedics. -Xarelto 10 mg Disposition: Patient continues to be medically optimized will continue to follow. Consultation by Orthopedics is greatly appreciated. A-FIB/CHADSVASC A-FIB History Current/History of A-Fib/PAF?: No VS, I&O, 24H, Fishbone Vital Signs/I&O Vital Signs Date Time Temp Pulse Resp B/P (MAP) Pulse Ox O2 Delivery O2 Flow Rate FiO2 02/25/19 14:00 98.7 88 16 136/80 (98) 97 02/24/19 14:10 2 I&O- Last 24 Hours up to 6 AM 02/25/19 06:00 Intake Total 2990 ml Output Total 450 ml Balance 2540 ml Laboratory Data 24H LABS Laboratory Tests 2 02/25/19 05:55: Nucleated Red Blood Cells % (auto) 0.0, Prothrombin Time 13.6, Prothromb Time International Ratio 1.03, Anion Gap 7L, Glomerular Filtration Rate > 60.0, Blood Urea Nitrogen 15, Creatinine 0.86, Sodium Level 137, Potassium Level 4.0, Chloride Level 105, Carbon Dioxide Level 25, Calcium Level 8.6L CBC/BMP Laboratory Tests 02/25/19 05:55 Red Blood Count 3.47 L, Mean Corpuscular Volume 91.6, Mean Corpuscular Hemoglobin 30.8, Mean Corpuscular Hemoglobin Concent 33.6, Red Cell Distribution Width 14.3, Calcium Level 8.6 L GME ATTESTATION GME ATTESTATION My faculty preceptor for this patient encounter was physically present during the encounter and was fully available. All aspects of the patient interview, examination, medical decision making process, and medical care plan development were reviewed and approved by the faculty preceptor. The faculty preceptor is aware and concurs with the plan as stated in the body of this note and will attest to such by his/her cosignature. ATTENDING NOTE I saw and evaluated the patient. I agree with the findings and plan of care as documented in the resident's note EDMAR HARRELL DO February 25, 2019 16:21 JOSE G GARCIA MD February 27, 2019 13:14
[2019-02-25] MEDS ORDERED: RIVAROXABAN 10 MG TAB (XARELTO) PO SCH (18:00)
[2019-02-25] MEDS ORDERED: ATORVASTATIN 20 MG TAB PO SCH (21:00)
[2019-02-25 22:00] VITALS: BP 141/73
[2019-02-26] MEDS: NORCO, ANEXSIA 5/325MG TABLET (HYDROcodone/ACETAMINOPHEN) PO PRN ×3 (02:54→11:03)
[2019-02-26] MEDS: LEVOTHYROXINE 75MCG TABLET (0.075MG) PO SCH (05:57)
[2019-02-26 06:00] VITALS: BP 143/74
[2019-02-26 06:33] LABS: HEMATOCRIT 29.2 % (36.0-47.0); HEMOGLOBIN 9.9 g/dl (12.0-15.5); MEAN CORPUSCULAR HEMOGLOBIN 30.9 pg (27.0-33.0); MEAN CORPUSCULAR HGB CONC 33.9 g/dl (32.0-36.5); MEAN CORPUSCULAR VOLUME 91.3 fl (80.0-96.0); PLATELET COUNT, AUTOMATED 249 10^3/uL (150-450)
[2019-02-26 07:05] LABS: BLOOD UREA NITROGEN 13 MG/DL (7-18); CALCIUM LEVEL 8.1 MG/DL (8.8-10.2); CARBON DIOXIDE LEVEL 26 MEQ/L (21-32); CHLORIDE LEVEL 100 MEQ/L (98-107); CREATININE FOR GFR 0.75 MG/DL (0.55-1.30); GLOMERULAR FILTRATION RATE > 60.0 (>39); GLUCOSE, FASTING 139 MG/DL (70-100); POTASSIUM SERUM 3.6 MEQ/L (3.5-5.1); SODIUM LEVEL 135 MEQ/L (136-145)
[2019-02-26] MEDS: MOM 30ML SUSPENSION UDC PO SCH (09:02)
[2019-02-26] MEDS: MAGNESIUM CHLORIDE 64 MG TABCR (SLO MAG) PO SCH (09:03)
[2019-02-26] MEDS: MIRALAX *UNIT DOSE* 17GM PACKET PO SCH (09:03)
[2019-02-26] MEDS: FOLIC ACID 1 MG TAB PO SCH (09:03)
[2019-02-26] MEDS: CitaloPRAM (CeleXA) 10 MG TABLET PO SCH (09:03)
[2019-02-26] MEDS: OMEPRAZOLE 20 MG CAP PO SCH (09:03)
[2019-02-26] MEDS: OCUVITE 1 TAB PO SCH (09:03)
[2019-02-26] MEDS: VITAMIN D 1,000 INTERNATIONAL UNITS TABLET PO SCH (09:03)
--- NOTE | 2019-02-26 11:09 | IPNPDOC ---
Date Seen The patient was seen on 02/26/19. Progress Note SUBJECTIVE: Patient was seen and examined this morning. She has been cleared with PT. She denies chest pain, shortness of breath, nausea, vomiting, or diarrhea. Patient has not had a bowel movement. She does state that she is passing gas OBJECTIVE PHYSICAL EXAMINATION: VITAL SIGNS: Please see below. GENERAL: Awake, alert and oriented. Appears in no acute distress HEENT: Atrumatic normocephalic eyes are nonicteric. Trachea is midlne CARDIOVASCULAR: Normal S1, S2. Regular rate and rhythm. No clicks, rubs, or murmurs. RESPIRATORY: Clear vesicular breath sounds bilaterally with good respiratory effort. No wheezes, rhonci, or rales ABDOMINAL: Soft, nondistended, nontender to palpation of all 4 quadrants. No rebound tenderness or guarding. Positive bowel sounds EXTREMITIES: No edema. Full and equal pulses in bilateral upper and lower extremities NEUROLOGICAL: No focal neurological deficits PSYCHOLOGICAL: Mood and affect appear appropriate LABORATORY DATA, IMAGING STUDIES, MICROBIOLOGY: Please see below. DVT prophylaxis ordered?: YES ASSESSMENT AND PLAN: 1. s/P Left Total Knee Arthroplasty Post-op Day 2 -Patient received an elective left total knee arthroplasty today. There were no adverse events during her procedure. She is being managed by orthopedic surgery -Anticoagulation and pain medication management per Orthopedic surgery. 2. Hypertension -Patients BP is mildly elevated. She is to continue her blood pressure medication upon discharge 3. Hypothyroidism -Stable -She may continue her home synthroid dose 4. Hyperlipidemia -Patient is on Atorbastatin 20 mg Q2D. Will continue 5. Hypomagnesemia -Continue home medication 6. Seasonal Allergies -Loratadine 10mg -Patient may continue Nasacort upon discharge 7. Rheumatoid Arthritis -Patient receives Methotrexate, Infliximab Inj, and Meloxicam. -Can resume at D/C 8. Depression/Anxiety -Will continue Citalopram 9. GERD -Omeprazole 40mg 10 DVT prophylaxis -Patients anticoagulation is managed by Orthopedics. -Xarelto 10 mg Disposition: Patient may continue her home medications upon discharge. She is to continue her blood pressure medications as prescribed upon discharge. Consultation greatly appreciated A-FIB/CHADSVASC A-FIB History Current/History of A-Fib/PAF?: No VS, I&O, 24H, Fishbone Vital Signs/I&O Vital Signs Date Time Temp Pulse Resp B/P (MAP) Pulse Ox O2 Delivery O2 Flow Rate FiO2 02/26/19 07:26 16 02/26/19 06:00 98.2 87 143/74 (97) 93 02/24/19 14:10 2 I&O- Last 24 Hours up to 6 AM 02/26/19 06:00 Intake Total 2390 ml Output Total 1950 ml Balance 440 ml Laboratory Data 24H LABS Laboratory Tests 2 02/26/19 06:18: Nucleated Red Blood Cells % (auto) 0.0, Anion Gap 9, Glomerular Filtration Rate > 60.0, Blood Urea Nitrogen 13, Creatinine 0.75, Sodium Level 135L, Potassium Level 3.6, Chloride Level 100, Carbon Dioxide Level 26, Calcium Level 8.1L CBC/BMP Laboratory Tests 02/26/19 06:18 Red Blood Count 3.20 L, Mean Corpuscular Volume 91.3, Mean Corpuscular Hemoglobin 30.9, Mean Corpuscular Hemoglobin Concent 33.9, Red Cell Distribution Width 14.3, Calcium Level 8.1 L GME ATTESTATION GME ATTESTATION My faculty preceptor for this patient encounter was physically present during the encounter and was fully available. All aspects of the patient interview, examination, medical decision making process, and medical care plan development were reviewed and approved by the faculty preceptor. The faculty preceptor is aware and concurs with the plan as stated in the body of this note and will attest to such by his/her cosignature. ATTENDING NOTE I saw and evaluated the patient. I agree with the findings and plan of care as documented in the resident's note EDMAR HARRELL DO February 26, 2019 11:09 JOSE G GARCIA MD February 27, 2019 13:16
--- NOTE | 2019-02-28 14:28 | DSES ---
DATE OF ADMISSION: 02/24/2019 DATE OF DISCHARGE: 02/26/2019 DISCHARGE DIAGNOSIS: Left knee arthritis status post left total knee arthroplasty. HISTORY: This is a 73-year-old female with progressively worsening left knee pain and stiffness. She had failed to improve with conservative treatment. She elected for surgery for her continued symptoms. PROCEDURE PERFORMED: Left total knee arthroplasty. HOSPITAL COURSE: The patient was admitted on the day of surgery and underwent left total knee arthroplasty that was without complications. Her hospital course was without complications. She was up with physical therapy per the protocol and her pain was controlled. On the day of discharge, the patient was doing well. She will be weightbearing as tolerated to her left lower extremity. She will resume oral medications and diet. She will use oral medication for pain control. She will use Xarelto for 2 weeks postoperatively and thromboembolic deterrent (REINIER) stockings for 30 days postoperatively for deep vein thrombosis (DVT) prophylaxis. Additionally, she will followup in the office in 2 weeks for a wound check and staple removal. Please refer to the medical record for further details.
== END 2019-02-26 11:30 | disposition home health service (06) | DRG 470 ==
LOC: M OR 09:02 → M MS5PR 14:50
PROVIDERS: ADMIT Orthopaedic Surgery; ATTEND Internal Medicine
PROC: 0SRD0J9 Replacement of Left Knee Joint with Synthetic Substitute, Cemented, Open Approach (ICD-10-PCS; principal; 2019-02-24 12:45)
DX: M17.12 Unilateral primary osteoarthritis, left knee (principal); Z79.899 Other long term (current) drug therapy; I10 Essential (primary) hypertension; E78.5 Hyperlipidemia, unspecified; E03.9 Hypothyroidism, unspecified; K21.9 Gastro-esophageal reflux disease without esophagitis; F41.9 Anxiety disorder, unspecified; F32.9 Major depressive disorder, single episode, unspecified; M06.9 Rheumatoid arthritis, unspecified; E83.42 Hypomagnesemia

== ENCOUNTER → 2020-07-24 | Outpatient (REF) | payer MEDICARE, OTHER ==
[~2020-07-24] MED LIST changes: -ACETAMINOPHEN 500 MG TAB PO ONE; +AMLO1TAB24 PO; -AMLO5TAB6 PO; +CHOL100029 PO; -LR 1,000 ML IV SCH; -OMEP40CA2 PO; +OMEP40CA97 PO; -VITAD1000T PO
== END ==
LOC: M LAB REF 17:26
PROVIDERS: ATTEND Physician Assistant
DX: N39.0 Urinary tract infection, site not specified (principal)

== ENCOUNTER → 2020-08-26 | Outpatient (REF) | payer MEDICARE, OTHER | LOC: M LAB REF 15:57 | PROVIDERS: ATTEND Radiology Diagnostic Radiology | DX: N63.0 Unspecified lump in unspecified breast (principal) ==

== ENCOUNTER → 2021-04-12 | Outpatient (REF) | payer MEDICARE, OTHER ==
[~2021-04-12] MED LIST changes: +OMEP40CA4 PO; -OMEP40CA97 PO
== END ==
LOC: M LAB REF 09:16
PROVIDERS: ATTEND Dermatology
DX: C44.319 Basal cell carcinoma of skin of other parts of face (principal)
CPT/HCPCS: 14041; 88305; 88331; 88332; G0463

== ENCOUNTER → 2022-07-23 | Outpatient (REF) | payer MEDICARE, OTHER ==
[~2022-07-23] MED LIST changes: -FOSI40TA3 PO; +FOSI40TA59 PO
== END ==
LOC: M WUC 18:49
PROVIDERS: ATTEND Physician Assistant
DX: R30.0 Dysuria (principal); N39.0 Urinary tract infection, site not specified

== ENCOUNTER → 2022-07-29 | Outpatient (REF) | payer MEDICARE, OTHER | LOC: M LAB REF 19:13 | PROVIDERS: ATTEND Physician Assistant | DX: R30.0 Dysuria (principal) ==

== ENCOUNTER → 2022-08-31 | Outpatient (CLI) | payer MEDICARE, OTHER ==
[2022-08-31 14:15] LABS: HEMATOCRIT 38.1 % (36.0-47.0); HEMOGLOBIN 12.2 g/dl (12.0-15.5); MEAN CORPUSCULAR HEMOGLOBIN 29.8 pg (27.0-33.0); MEAN CORPUSCULAR VOLUME 93.2 fl (80.0-96.0); PLATELET COUNT, AUTOMATED 380 10^3/uL (150-450); RED BLOOD COUNT 4.09 10^6/uL (4.00-5.40); WHITE BLOOD COUNT 12.3 10^3/uL (4.0-10.0)
[2022-08-31 15:04] LABS: HEMOGLOBIN A1c 6.4 % (4.0-6.0)
[2022-08-31 15:05] LABS: ALBUMIN 3.8 G/DL (3.2-5.2); BILIRUBIN,TOTAL 0.5 MG/DL (0.3-1.2); C REACTIVE PROTEIN QUANTITATIV 0.4 MG/DL (<1.0); CALCIUM LEVEL 9.2 MG/DL (8.3-10.6); CHOLESTEROL RISK RATIO 2.95 (<5); CREATININE FOR GFR 1.05 MG/DL (0.55-1.30); FREE T4 1.21 NG/DL (0.89-1.76); GLOMERULAR FILTRATION RATE 54.4 (>39); HDL CHOLESTEROL 64.9 MG/DL (>40); LDL CHOLESTEROL 101.9 MG/DL (<100); POTASSIUM SERUM 4.9 MMOL/L (3.5-5.1); THYROID STIMULATING HORMONE 1.714 uIU/ML (0.55-4.78); TOTAL 25(OH) VITAMIN D 49.9 NG/ML (20.0-100.0); TOTAL PROTEIN 7.8 G/DL (5.7-8.2)
== END ==
LOC: M PLALAB 11:53
PROVIDERS: ATTEND Internal Medicine Hematology
DX: E78.00 Pure hypercholesterolemia, unspecified (principal); Z79.899 Other long term (current) drug therapy

== ENCOUNTER → 2023-05-25 | Outpatient (CLI) | payer MEDICARE, OTHER ==
[~2023-05-25] MED LIST changes: +D200CAP PO; +PRESCAP4 PO; +THERTAB52 PO; +ZYRT10TA12 PO
== END ==
LOC: M WHC 10:07
PROVIDERS: ATTEND Internal Medicine Hematology
DX: Z12.31 Encounter for screening mammogram for malignant neoplasm of breast (principal); Z13.820 Encounter for screening for osteoporosis; Z78.0 Asymptomatic menopausal state

== ENCOUNTER 2024-09-04 14:31 | Inpatient (IN) | payer MEDICARE, OTHER ==
[~2024-09-04] VITALS: Ht 172.7 cm; Wt 90.0 kg
[2024-09-04 16:29] LABS: HEMATOCRIT 34.8 % (36.0-47.0); HEMOGLOBIN 12.3 g/dl (12.0-15.5); MEAN CORPUSCULAR HEMOGLOBIN 30.2 pg (27.0-33.0); MEAN CORPUSCULAR HGB CONC 35.3 g/dl (32.0-36.5); MEAN CORPUSCULAR VOLUME 85.5 fl (80.0-96.0); PLATELET COUNT, AUTOMATED 380 10^3/uL (150-450); RED BLOOD COUNT 4.07 10^6/uL (4.00-5.40); WHITE BLOOD COUNT 23.9 10^3/uL (4.0-10.0)
[2024-09-04 16:37] LABS: ERYTHROCYTE SEDIMENTATION RATE 117 mm/hr (0-30)
[2024-09-04] MEDS: traMADol 50 MG TAB PO ONE (16:42)
[2024-09-04 17:03] LABS: URIC ACID 5.5 MG/DL (3.1-7.8)
[2024-09-04 17:05] LABS: C REACTIVE PROTEIN QUANTITATIV 25.8 MG/DL (<1.0)
[2024-09-04 17:06] LABS: CALCIUM LEVEL 9.6 MG/DL (8.3-10.6); CREATININE FOR GFR 1.31 MG/DL (0.55-1.30); GLOMERULAR FILTRATION RATE 41.9 (>39); POTASSIUM SERUM 3.9 MMOL/L (3.5-5.1)
[2024-09-04] MEDS: VANCOMYCIN/WATER FOR INJ (PEG) 1,750 MG in IV 1 EA IV ONE (17:18)
[2024-09-04 19:02] LABS: ALBUMIN 3.1 G/DL (3.2-5.2); BILIRUBIN,DIRECT 0.2 MG/DL (<0.4); BILIRUBIN,TOTAL 0.7 MG/DL (0.3-1.2); MAGNESIUM LEVEL 1.8 MG/DL (1.8-2.4); PHOSPHORUS LEVEL 3.3 MG/DL (2.4-5.1); TOTAL PROTEIN 7.8 G/DL (5.7-8.2)
[2024-09-04 19:08] LABS: PROCALCITONIN 0.23 ng/ml
[2024-09-04] MEDS ORDERED: HYDR-4571 PO (19:37)
[2024-09-04] MEDS ORDERED: CEPH500C PO (19:37)
[2024-09-04] MEDS ORDERED: HOME MED LIST COMPLETE! XX SCH (19:45)
[2024-09-04] MEDS ORDERED: VANCOMYCIN/WATER FOR INJ 1,000 MG in IV 1 EA IV SCH (20:55)
[2024-09-04] MEDS ORDERED: NS 1,000 ML IV SCH (20:55)
[2024-09-04] MEDS ORDERED: MOM 30ML SUSPENSION UDC PO PRN ×2 (20:55→21:35)
[2024-09-04] MEDS ORDERED: ACETAMINOPHEN 325 MG TAB PO PRN ×2 (20:55→21:35)
[2024-09-04] MEDS ORDERED: HEPARIN SOD (PORCINE) 5000UNITS/ML 1ML VIAL/SYRINGE SC SCH (20:55)
[2024-09-04] MEDS ORDERED: NORCO, ANEXSIA 5/325MG TABLET (HYDROcodone/ACETAMINOPHEN) PO PRN (20:55)
[2024-09-04] MEDS ORDERED: MAALOX 30 ML SUSP *UDC PO PRN ×2 (20:55→21:35)
[2024-09-04] MEDS ORDERED: amLODIPine 5 MG TAB PO SCH (21:00)
[2024-09-04] MEDS ORDERED: VITAMIN D 1,000 INTERNATIONAL UNITS TABLET PO SCH (21:00)
[2024-09-04] MEDS ORDERED: DOCUSATE SODIUM 100MG CAPSULE PO SCH (21:00)
[2024-09-04] MEDS ORDERED: ENTER DRUG NAME HERE (PATIENT'S OWN MED) PO SCH (21:00)
[2024-09-04] MEDS ORDERED: ATORVASTATIN 20 MG TAB PO SCH (21:00)
[2024-09-04] MEDS ORDERED: OMEGA-3 1000MG CAPSULE PO SCH (21:00)
[2024-09-04] MEDS ORDERED: NALOXONE INJ 0.4MG/1ML VIAL IV PRN (21:35)
[2024-09-04] MEDS: NS 1,000 ML IV SCH (22:16)
[2024-09-04] MEDS: DOCUSATE SODIUM 100MG CAPSULE PO SCH (22:17)
[2024-09-04] MEDS: PERCOCET 5MG/325MG TAB PO PRN (22:19)
[2024-09-04 22:23] LABS: INR 1.21; PARTIAL THROMBOPLASTIN TIME 28.5 SECONDS (24.8-34.2); PROTHROMBIN TIME 15.6 SECONDS (12.5-14.5)
[2024-09-04 22:30] VITALS: O2SAT 94
[2024-09-04 22:36] LABS: CALCIUM LEVEL 9.2 MG/DL (8.3-10.6); CREATININE FOR GFR 1.05 MG/DL (0.55-1.30); GLOMERULAR FILTRATION RATE 54.1 (>39); POTASSIUM SERUM 3.6 MMOL/L (3.5-5.1)
[2024-09-04] MEDS: cefTRIAXone SOD 1 GM in DEXTROSE 5% (D5W) ADV/MINI-BAG 50 ML IV SCH (22:50)
[2024-09-05] MEDS ORDERED: GLUCOSE 4 GM CHEW PO PRN (00:15)
[2024-09-05] MEDS ORDERED: GLUCAGON INJ 1MG VIAL SC PRN (00:15)
[2024-09-05] MEDS ORDERED: DEXTROSE 50% 50ML SYRINGE IV PRN (00:15)
[2024-09-05] MEDS: ATORVASTATIN 20 MG TAB PO SCH (00:51)
[2024-09-05] MEDS: amLODIPine 5 MG TAB PO SCH (00:52)
[2024-09-05] MEDS: MAGNESIUM OXIDE 400MG TAB (MAG-OX) PO SCH (00:52)
[2024-09-05] MEDS: VITAMIN D 1,000 INTERNATIONAL UNITS TABLET PO SCH (00:56)
[2024-09-05 01:53] VITALS: BP 129/63; TEMP 97.7; O2SAT 92
[2024-09-05 04:00] VITALS: BP 150/70; TEMP 97.3; O2SAT 92
[2024-09-05 05:49] LABS: HEMATOCRIT 31.9 % (36.0-47.0); HEMOGLOBIN 11.2 g/dl (12.0-15.5); MEAN CORPUSCULAR HEMOGLOBIN 30.6 pg (27.0-33.0); MEAN CORPUSCULAR HGB CONC 35.1 g/dl (32.0-36.5); MEAN CORPUSCULAR VOLUME 87.2 fl (80.0-96.0); PLATELET COUNT, AUTOMATED 334 10^3/uL (150-450); RED BLOOD COUNT 3.66 10^6/uL (4.00-5.40); WHITE BLOOD COUNT 20.2 10^3/uL (4.0-10.0)
[2024-09-05 05:59] LABS: ERYTHROCYTE SEDIMENTATION RATE 96 mm/hr (0-30)
[2024-09-05 06:22] LABS: ALBUMIN 2.4 G/DL (3.2-5.2); ALKALINE PHOSPHATASE 71 U/L (35-104); ALT/SGPT 40 U/L (7.0-40); AST/SGOT 17 U/L (<34); BILIRUBIN,TOTAL 0.5 MG/DL (0.3-1.2); BLOOD UREA NITROGEN 28 MG/DL (9-23); CARBON DIOXIDE LEVEL 22 MMOL/L (20-31); CHLORIDE LEVEL 96 MMOL/L (98-107); GLOMERULAR FILTRATION RATE > 60.0 (>39); GLUCOSE, FASTING 120 MG/DL (74-106); MAGNESIUM LEVEL 1.8 MG/DL (1.8-2.4); POTASSIUM SERUM 3.3 MMOL/L (3.5-5.1); SODIUM LEVEL 129 MMOL/L (136-145); TOTAL PROTEIN 6.7 G/DL (5.7-8.2)
[2024-09-05] MEDS: LEVOTHYROXINE 75MCG TABLET (0.075MG) PO SCH (06:58)
[2024-09-05] MEDS: INSULIN LISPRO (NovoLOG) PER UNIT SC SCH ×2 (07:30→21:00)
[2024-09-05 07:55] LABS: OSMOLALITY SERUM 272 MOSM/KG (280-301)
[2024-09-05 08:00] VITALS: BP_SYST 132; BP_SYST 138; BP_DIAS 63; BP_DIAS 65; TEMP 97.7; TEMP 98.1; O2SAT 94; O2SAT 95
[2024-09-05] MEDS: KCL 10MEQ/100ML SWI (KRUN) 10 MEQ in IV 1 EA IV SCH (08:18)
[2024-09-05] MEDS ORDERED: CitaloPRAM (CeleXA) 10 MG TABLET PO SCH (09:00)
[2024-09-05] MEDS ORDERED: FOSINOPRIL 10MG TABLET PO SCH (09:00)
[2024-09-05] MEDS ORDERED: MAGNESIUM OXIDE 400MG TAB (MAG-OX) PO SCH (09:00)
[2024-09-05] MEDS ORDERED: MULTIVITAMINS/MINERALS THERAP 1 TAB PO SCH (09:00)
[2024-09-05] MEDS ORDERED: OMEPRAZOLE 20MG CAP PO SCH (09:00)
[2024-09-05] MEDS ORDERED: LEVOTHYROXINE 75MCG TABLET (0.075MG) PO SCH (09:00)
[2024-09-05] MEDS ORDERED: CHLORTHALIDONE 25 MG TAB PO SCH (09:00)
[2024-09-05] MEDS ORDERED: FOLIC ACID 1MG TAB PO SCH (09:00)
[2024-09-05] MEDS: MULTIVITAMINS/MINERALS THERAP 1 TAB PO SCH (09:45)
[2024-09-05] MEDS: FOLIC ACID 1MG TAB PO SCH (09:45)
[2024-09-05] MEDS: OMEPRAZOLE 20MG CAP PO SCH (09:45)
[2024-09-05] MEDS: CitaloPRAM (CeleXA) 10 MG TABLET PO SCH (09:45)
[2024-09-05] MEDS: POTASSIUM CHLORIDE 10MEQ SR TABLET PO ONE (09:46)
[2024-09-05] MEDS: HEPARIN SOD (PORCINE) 5000UNITS/ML 1ML VIAL/SYRINGE SC SCH (09:47)
[2024-09-05] MEDS: FOSINOPRIL 10MG TABLET PO SCH (10:16)
[2024-09-05] MEDS ORDERED: VANCOMYCIN/WATER FOR INJ 1,000 MG in IV 1 EA IV SCH (11:00)
[2024-09-05] MEDS: VANCOMYCIN 750MG/150 ML IV BAG IV SCH (11:16)
[2024-09-05] MEDS: FLUTICASONE PROP 0.05% NASAL SPRAY 16 GM (FLONASE) NARES SCH (12:13)
[2024-09-05] MEDS: CEFEPIME HCL 2 GM in DEXTROSE 5% (D5W) ADV/MINI-BAG 50 ML IV SCH (12:14)
[2024-09-05 12:29] LABS: BLOOD UREA NITROGEN 27 MG/DL (9-23); CARBON DIOXIDE LEVEL 23 MMOL/L (20-31); CHLORIDE LEVEL 94 MMOL/L (98-107); CREATININE FOR GFR 0.86 MG/DL (0.55-1.30); GLOMERULAR FILTRATION RATE > 60.0 (>39); GLUCOSE, FASTING 114 MG/DL (74-106); POTASSIUM SERUM 3.9 MMOL/L (3.5-5.1); SODIUM LEVEL 128 MMOL/L (136-145)
[2024-09-05 13:03] VITALS: BP 144/70; TEMP 98.2; O2SAT 95
[2024-09-05 16:00] VITALS: BP 126/73; TEMP 97.7; O2SAT 95
[2024-09-05 20:38] LABS: BLOOD UREA NITROGEN 26 MG/DL (9-23); CALCIUM LEVEL 8.7 MG/DL (8.3-10.6); CARBON DIOXIDE LEVEL 22 MMOL/L (20-31); CHLORIDE LEVEL 99 MMOL/L (98-107); CREATININE FOR GFR 0.93 MG/DL (0.55-1.30); GLOMERULAR FILTRATION RATE > 60.0 (>39); GLUCOSE, FASTING 122 MG/DL (74-106); POTASSIUM SERUM 3.9 MMOL/L (3.5-5.1); SODIUM LEVEL 130 MMOL/L (136-145)
[2024-09-05] MEDS: OMEGA-3 1000MG CAPSULE PO SCH (20:54)
[2024-09-05 21:00] VITALS: BP 137/72; TEMP 97.9; O2SAT 94
[2024-09-06 01:01] LABS: BLOOD UREA NITROGEN 26 MG/DL (9-23); CALCIUM LEVEL 8.7 MG/DL (8.3-10.6); CARBON DIOXIDE LEVEL 21 MMOL/L (20-31); CHLORIDE LEVEL 101 MMOL/L (98-107); CREATININE FOR GFR 0.89 MG/DL (0.55-1.30); GLOMERULAR FILTRATION RATE > 60.0 (>39); GLUCOSE, FASTING 155 MG/DL (74-106); POTASSIUM SERUM 4.2 MMOL/L (3.5-5.1); SODIUM LEVEL 130 MMOL/L (136-145)
[2024-09-06 06:33] VITALS: BP 133/63; TEMP 98.1; O2SAT 94
[2024-09-06 06:46] LABS: BASO % 0.1 % (0.0-1.0); EOS # 0.1 10^3/uL (0.0-0.5); EOS % 0.3 % (0.0-3.0); HEMATOCRIT 32.9 % (36.0-47.0); HEMOGLOBIN 10.9 g/dl (12.0-15.5); LYMPH # 3.2 10^3/uL (1.5-5.0); LYMPH % 21.5 % (24.0-44.0); MEAN CORPUSCULAR HEMOGLOBIN 29.8 pg (27.0-33.0); MEAN CORPUSCULAR HGB CONC 33.1 g/dl (32.0-36.5); MEAN CORPUSCULAR VOLUME 89.9 fl (80.0-96.0); MONO # 1.4 10^3/uL (0.0-0.8); MONO % 9.6 % (2.0-8.0); NEUTROPHILS # 10.1 10^3/uL (1.5-8.5); PLATELET COUNT, AUTOMATED 362 10^3/uL (150-450); RED BLOOD COUNT 3.66 10^6/uL (4.00-5.40); WHITE BLOOD COUNT 14.9 10^3/uL (4.0-10.0)
[2024-09-06 07:13] LABS: BLOOD UREA NITROGEN 26 MG/DL (9-23); CALCIUM LEVEL 8.9 MG/DL (8.3-10.6); CARBON DIOXIDE LEVEL 21 MMOL/L (20-31); CHLORIDE LEVEL 101 MMOL/L (98-107); GLOMERULAR FILTRATION RATE > 60.0 (>39); GLUCOSE, FASTING 137 MG/DL (74-106); POTASSIUM SERUM 3.9 MMOL/L (3.5-5.1); SODIUM LEVEL 132 MMOL/L (136-145)
[2024-09-06 12:00] VITALS: BP 126/70; TEMP 97.5; O2SAT 95
[2024-09-06 20:45] VITALS: BP 116/54; TEMP 97.5; O2SAT 78
[2024-09-07 03:59] VITALS: BP 118/88; TEMP 97.7; O2SAT 95
[2024-09-07 08:21] LABS: BASO % 0.2 % (0.0-1.0); EOS # 0.1 10^3/uL (0.0-0.5); EOS % 0.6 % (0.0-3.0); HEMATOCRIT 32.4 % (36.0-47.0); HEMOGLOBIN 10.8 g/dl (12.0-15.5); LYMPH # 3.2 10^3/uL (1.5-5.0); LYMPH % 25.4 % (24.0-44.0); MEAN CORPUSCULAR HEMOGLOBIN 29.8 pg (27.0-33.0); MEAN CORPUSCULAR HGB CONC 33.3 g/dl (32.0-36.5); MEAN CORPUSCULAR VOLUME 89.5 fl (80.0-96.0); MONO # 1.5 10^3/uL (0.0-0.8); MONO % 12.3 % (2.0-8.0); NEUTROPHILS # 7.6 10^3/uL (1.5-8.5); NEUTROPHILS % 60.7 % (36.0-66.0); PLATELET COUNT, AUTOMATED 370 10^3/uL (150-450); RED BLOOD COUNT 3.62 10^6/uL (4.00-5.40); WHITE BLOOD COUNT 12.5 10^3/uL (4.0-10.0)
[2024-09-07 08:45] LABS: BLOOD UREA NITROGEN 28 MG/DL (9-23); CARBON DIOXIDE LEVEL 22 MMOL/L (20-31); CHLORIDE LEVEL 103 MMOL/L (98-107); CREATININE FOR GFR 0.87 MG/DL (0.55-1.30); GLOMERULAR FILTRATION RATE > 60.0 (>39); GLUCOSE, FASTING 147 MG/DL (74-106); SODIUM LEVEL 134 MMOL/L (136-145)
[2024-09-07] MEDS: NS 1,000 ML IV SCH (08:46)
[2024-09-07 09:11] LABS: ERYTHROCYTE SEDIMENTATION RATE 96 mm/hr (0-30)
[2024-09-07 12:00] VITALS: BP 144/71; TEMP 97.9; O2SAT 98
[2024-09-07 20:06] VITALS: BP 104/72; TEMP 98.1
[2024-09-07 20:16] VITALS: O2SAT 97
[2024-09-07 23:34] VITALS: BP 131/70; TEMP 97.7; O2SAT 97
[2024-09-08 04:00] VITALS: BP 142/77; TEMP 97.7; O2SAT 98
[2024-09-08] MEDS: PERCOCET 5MG/325MG TAB PO PRN (06:07)
[2024-09-08 07:13] LABS: BASO % 0.3 % (0.0-1.0); EOS # 0.2 10^3/uL (0.0-0.5); EOS % 1.5 % (0.0-3.0); HEMATOCRIT 32.4 % (36.0-47.0); HEMOGLOBIN 11.1 g/dl (12.0-15.5); LYMPH # 3.8 10^3/uL (1.5-5.0); LYMPH % 31.6 % (24.0-44.0); MEAN CORPUSCULAR HEMOGLOBIN 30.7 pg (27.0-33.0); MEAN CORPUSCULAR HGB CONC 34.3 g/dl (32.0-36.5); MEAN CORPUSCULAR VOLUME 89.8 fl (80.0-96.0); MONO # 1.5 10^3/uL (0.0-0.8); MONO % 12.8 % (2.0-8.0); NEUTROPHILS # 6.3 10^3/uL (1.5-8.5); NEUTROPHILS % 52.7 % (36.0-66.0); PLATELET COUNT, AUTOMATED 378 10^3/uL (150-450); RED BLOOD COUNT 3.61 10^6/uL (4.00-5.40)
[2024-09-08 07:38] LABS: BLOOD UREA NITROGEN 24 MG/DL (9-23); CALCIUM LEVEL 8.7 MG/DL (8.3-10.6); CARBON DIOXIDE LEVEL 24 MMOL/L (20-31); CHLORIDE LEVEL 103 MMOL/L (98-107); CREATININE FOR GFR 0.89 MG/DL (0.55-1.30); GLOMERULAR FILTRATION RATE > 60.0 (>39); GLUCOSE, FASTING 127 MG/DL (74-106); MAGNESIUM LEVEL 1.9 MG/DL (1.8-2.4); POTASSIUM SERUM 4.3 MMOL/L (3.5-5.1); SODIUM LEVEL 134 MMOL/L (136-145)
[2024-09-08] MEDS ORDERED: VANCOMYCIN 1,500 MG/300 ML IV BAG IV SCH (08:00)
[2024-09-08] MEDS: VANCOMYCIN 1,250 MG/250 ML IV BAG IV SCH (09:05)
[2024-09-08] MEDS: CHLORTHALIDONE 12.5MG PER 1/2 TABLET PO SCH (11:58)
[2024-09-08 12:00] VITALS: BP 144/68; TEMP 97.6; O2SAT 97
[2024-09-08] MEDS: ceFAZolin SOD 2 GM in IV 1 EA IV SCH (16:18)
[2024-09-08 21:00] VITALS: BP 143/66; TEMP 97.7; O2SAT 95
[2024-09-09 04:33] VITALS: BP 135/70; TEMP 97.2; O2SAT 96
[2024-09-09 06:50] LABS: BASO # 0.1 10^3/uL (0.0-0.2); BASO % 0.4 % (0.0-1.0); EOS # 0.2 10^3/uL (0.0-0.5); EOS % 1.7 % (0.0-3.0); HEMATOCRIT 32.3 % (36.0-47.0); HEMOGLOBIN 10.9 g/dl (12.0-15.5); LYMPH % 34.7 % (24.0-44.0); MEAN CORPUSCULAR HEMOGLOBIN 30.5 pg (27.0-33.0); MEAN CORPUSCULAR HGB CONC 33.7 g/dl (32.0-36.5); MEAN CORPUSCULAR VOLUME 90.5 fl (80.0-96.0); MONO # 1.6 10^3/uL (0.0-0.8); NEUTROPHILS # 5.5 10^3/uL (1.5-8.5); NEUTROPHILS % 47.6 % (36.0-66.0); PLATELET COUNT, AUTOMATED 363 10^3/uL (150-450); RED BLOOD COUNT 3.57 10^6/uL (4.00-5.40); WHITE BLOOD COUNT 11.5 10^3/uL (4.0-10.0)
[2024-09-09 07:40] LABS: C REACTIVE PROTEIN QUANTITATIV 7.6 MG/DL (<1.0)
[2024-09-09 07:41] LABS: CALCIUM LEVEL 8.6 MG/DL (8.3-10.6); CREATININE FOR GFR 0.96 MG/DL (0.55-1.30); POTASSIUM SERUM 4.3 MMOL/L (3.5-5.1)
[2024-09-09 08:13] VITALS: BP 152/76; TEMP 97.9; O2SAT 96
[2024-09-09 12:00] VITALS: BP 127/63; TEMP 97.2; O2SAT 95
[2024-09-09 20:00] VITALS: BP 142/76; TEMP 98.2; O2SAT 96
[2024-09-10 04:00] VITALS: BP 135/75; TEMP 97
[2024-09-10 06:15] LABS: BASO % 0.4 % (0.0-1.0); EOS # 0.2 10^3/uL (0.0-0.5); EOS % 2.1 % (0.0-3.0); HEMATOCRIT 32.5 % (36.0-47.0); HEMOGLOBIN 10.9 g/dl (12.0-15.5); LYMPH % 35.8 % (24.0-44.0); MEAN CORPUSCULAR HEMOGLOBIN 29.8 pg (27.0-33.0); MEAN CORPUSCULAR HGB CONC 33.5 g/dl (32.0-36.5); MEAN CORPUSCULAR VOLUME 88.8 fl (80.0-96.0); MONO # 1.5 10^3/uL (0.0-0.8); MONO % 13.5 % (2.0-8.0); NEUTROPHILS # 5.3 10^3/uL (1.5-8.5); PLATELET COUNT, AUTOMATED 362 10^3/uL (150-450); RED BLOOD COUNT 3.66 10^6/uL (4.00-5.40); WHITE BLOOD COUNT 11.2 10^3/uL (4.0-10.0)
[2024-09-10 06:37] LABS: BLOOD UREA NITROGEN 19 MG/DL (9-23); CARBON DIOXIDE LEVEL 27 MMOL/L (20-31); CHLORIDE LEVEL 102 MMOL/L (98-107); CREATININE FOR GFR 0.88 MG/DL (0.55-1.30); GLOMERULAR FILTRATION RATE > 60.0 (>39); GLUCOSE, FASTING 129 MG/DL (74-106); POTASSIUM SERUM 4.2 MMOL/L (3.5-5.1); SODIUM LEVEL 135 MMOL/L (136-145)
[2024-09-10 08:11] VITALS: BP 125/70; TEMP 97.9; O2SAT 95
[2024-09-10 08:17] VITALS: BP 125/70
[2024-09-10] MEDS ORDERED: OXYC-517 PO (13:15)
== END 2024-09-10 13:30 | disposition home or self-care (01) | DRG 549 ==
LOC: M ED 14:31 → M ED INP 20:50 → M MS5PR 21:58
PROVIDERS: ADMIT Student in an Organized Health Care Education/Training Program; ATTEND Student in an Organized Health Care Education/Training Program
PROC: 0R9P3ZZ Drainage of Left Wrist Joint, Percutaneous Approach (ICD-10-PCS; principal; 2024-09-09)
DX: M00.032 Staphylococcal arthritis, left wrist (principal); L03.114 Cellulitis of left upper limb; D84.9 Immunodeficiency, unspecified; N17.9 Acute kidney failure, unspecified; E87.1 Hypo-osmolality and hyponatremia; I10 Essential (primary) hypertension; M06.9 Rheumatoid arthritis, unspecified; E03.9 Hypothyroidism, unspecified; E78.00 Pure hypercholesterolemia, unspecified; B95.61 Methicillin susceptible Staphylococcus aureus infection as the cause of diseases classified elsewhere; Z98.41 Cataract extraction status, right eye; Z79.899 Other long term (current) drug therapy; Z96.653 Presence of artificial knee joint, bilateral; Z98.42 Cataract extraction status, left eye; Z85.828 Personal history of other malignant neoplasm of skin

== ENCOUNTER → 2024-09-10 | Outpatient (CLI) | payer MEDICARE, OTHER ==
[~2024-09-10] VITALS: Ht 172.7 cm; Wt 88.6 kg
[~2024-09-10] MED LIST changes: +CEPH500C PO; +HYDR-4571 PO; +OXYC-517 PO
[2024-09-10 14:00] VITALS: BP 125/69; O2SAT 96
[2024-09-10] MEDS: DALBAVANCIN 1,500 MG in D5W 250 ML IV ONE (14:35)
== END ==
LOC: M INFU 13:41
PROVIDERS: ATTEND Internal Medicine Infectious Disease
DX: M00.832 Arthritis due to other bacteria, left wrist (principal); B95.61 Methicillin susceptible Staphylococcus aureus infection as the cause of diseases classified elsewhere; Z88.5 Allergy status to narcotic agent
CPT/HCPCS: 96365; J0875

== ENCOUNTER 2024-09-18 15:35 | Outpatient (CLI) | payer MEDICARE, OTHER ==
[~2024-09-18] VITALS: Ht 172.7 cm; Wt 88.1 kg
[2024-09-18 15:35] VITALS: BP 128/58; O2SAT 95
[~2024-09-18 15:35] MED LIST changes: +NS 1,000 ML IV SCH
[2024-09-18 16:05] LABS: HEMATOCRIT 31.5 % (36.0-47.0); HEMOGLOBIN 10.7 g/dl (12.0-15.5); MEAN CORPUSCULAR HEMOGLOBIN 30.4 pg (27.0-33.0); MEAN CORPUSCULAR VOLUME 89.5 fl (80.0-96.0); PLATELET COUNT, AUTOMATED 439 10^3/uL (150-450); RED BLOOD COUNT 3.52 10^6/uL (4.00-5.40); WHITE BLOOD COUNT 11.2 10^3/uL (4.0-10.0)
[2024-09-18] MEDS: DALBAVANCIN 1,500 MG in D5W 250 ML IV ONE (16:08)
[2024-09-18 16:12] LABS: ERYTHROCYTE SEDIMENTATION RATE 82 mm/hr (0-30)
[2024-09-18 16:37] LABS: C REACTIVE PROTEIN QUANTITATIV 0.76 MG/DL (<1.0); CALCIUM LEVEL 9.3 MG/DL (8.3-10.6); CREATININE FOR GFR 0.98 MG/DL (0.55-1.30); GLOMERULAR FILTRATION RATE 58.6 (>39); POTASSIUM SERUM 3.7 MMOL/L (3.5-5.1)
[2024-09-18 17:00] VITALS: BP 142/67; O2SAT 95
== END 2024-09-18 17:00 ==
LOC: M INFU 15:35
PROVIDERS: ATTEND Internal Medicine Infectious Disease
DX: M00.832 Arthritis due to other bacteria, left wrist (principal); B95.61 Methicillin susceptible Staphylococcus aureus infection as the cause of diseases classified elsewhere; Z88.5 Allergy status to narcotic agent
CPT/HCPCS: 36592; 80048; 85027; 85652; 86140; 96365; J0875

== ENCOUNTER → 2024-10-02 | Outpatient (CLI) | payer MEDICARE, OTHER ==
[~2024-10-02] MED LIST changes: -NS 1,000 ML IV SCH
[2024-10-02 16:31] LABS: HEMATOCRIT 34.2 % (36.0-47.0); HEMOGLOBIN 11.5 g/dl (12.0-15.5); MEAN CORPUSCULAR HEMOGLOBIN 29.9 pg (27.0-33.0); MEAN CORPUSCULAR HGB CONC 33.6 g/dl (32.0-36.5); MEAN CORPUSCULAR VOLUME 88.8 fl (80.0-96.0); PLATELET COUNT, AUTOMATED 369 10^3/uL (150-450); RED BLOOD COUNT 3.85 10^6/uL (4.00-5.40); WHITE BLOOD COUNT 11.7 10^3/uL (4.0-10.0)
[2024-10-02 16:56] LABS: C REACTIVE PROTEIN QUANTITATIV < 0.50 MG/DL (<1.0); IRON (FE) 45 UG/DL (50-170)
[2024-10-02 16:57] LABS: PERCENT SATURATION 14.1 % (13.2-45.0); TOTAL IRON BINDING CAPACITY 319 UG/DL (250-425)
[2024-10-02 16:58] LABS: FOLATE > 24.0 NG/ML (>5.4)
[2024-10-02 16:59] LABS: VITAMIN B12 LEVEL 828 PG/ML (211-911)
[2024-10-02 17:02] LABS: ERYTHROCYTE SEDIMENTATION RATE 66 mm/hr (0-30)
[2024-10-02 17:17] LABS: ATYPICAL LYMPH 2 % (0-5); LYMPHOCYTES 39 % (16-44); MONOCYTES 11 % (0-5); NEUTROPHILS 47 % (28-66); PLATELET ESTIMATE NORMAL (NORMAL)
== END ==
LOC: M PLALAB 12:08
PROVIDERS: ATTEND Internal Medicine Infectious Disease
DX: D64.9 Anemia, unspecified (principal); M00.032 Staphylococcal arthritis, left wrist

== ENCOUNTER → 2024-10-20 | Outpatient (CLI) | payer MEDICARE, OTHER ==
[2024-10-20 14:57] LABS: BASO # 0.1 10^3/uL (0.0-0.2); BASO % 0.4 % (0.0-1.0); EOS # 0.2 10^3/uL (0.0-0.5); EOS % 1.1 % (0.0-3.0); HEMATOCRIT 37.3 % (36.0-47.0); HEMOGLOBIN 12.5 g/dl (12.0-15.5); LYMPH # 6.8 10^3/uL (1.5-5.0); LYMPH % 47.4 % (24.0-44.0); MEAN CORPUSCULAR HGB CONC 33.5 g/dl (32.0-36.5); MEAN CORPUSCULAR VOLUME 89.7 fl (80.0-96.0); MONO # 1.2 10^3/uL (0.0-0.8); MONO % 8.1 % (2.0-8.0); NEUTROPHILS # 6.1 10^3/uL (1.5-8.5); NEUTROPHILS % 42.6 % (36.0-66.0); PLATELET COUNT, AUTOMATED 444 10^3/uL (150-450); RED BLOOD COUNT 4.16 10^6/uL (4.00-5.40); WHITE BLOOD COUNT 14.4 10^3/uL (4.0-10.0)
[2024-10-20 15:03] LABS: ERYTHROCYTE SEDIMENTATION RATE 92 mm/hr (0-30)
== END ==
LOC: M PLALAB 10:49
PROVIDERS: ATTEND Internal Medicine Infectious Disease
DX: M00.032 Staphylococcal arthritis, left wrist (principal); B95.61 Methicillin susceptible Staphylococcus aureus infection as the cause of diseases classified elsewhere

== ENCOUNTER → 2024-11-05 | Outpatient (CLI) | payer MEDICARE, OTHER ==
[2024-11-05 14:00] LABS: BASO # 0.1 10^3/uL (0.0-0.2); BASO % 0.6 % (0.0-1.0); EOS # 0.1 10^3/uL (0.0-0.5); EOS % 0.4 % (0.0-3.0); HEMOGLOBIN 11.8 g/dl (12.0-15.5); LYMPH # 5.3 10^3/uL (1.5-5.0); LYMPH % 32.9 % (24.0-44.0); MEAN CORPUSCULAR HEMOGLOBIN 29.8 pg (27.0-33.0); MEAN CORPUSCULAR HGB CONC 32.8 g/dl (32.0-36.5); MEAN CORPUSCULAR VOLUME 90.9 fl (80.0-96.0); MONO # 1.4 10^3/uL (0.0-0.8); MONO % 8.9 % (2.0-8.0); NEUTROPHILS # 9.1 10^3/uL (1.5-8.5); NEUTROPHILS % 56.9 % (36.0-66.0); PLATELET COUNT, AUTOMATED 387 10^3/uL (150-450); RED BLOOD COUNT 3.96 10^6/uL (4.00-5.40)
[2024-11-05 14:08] LABS: ERYTHROCYTE SEDIMENTATION RATE 80 mm/hr (0-30)
== END ==
LOC: M PLALAB 11:25
PROVIDERS: ATTEND Internal Medicine Infectious Disease
DX: M00.032 Staphylococcal arthritis, left wrist (principal)

== ENCOUNTER → 2024-12-15 | Outpatient (CLI) | payer MEDICARE, OTHER ==
[2024-12-15 14:09] LABS: BASO # 0.1 10^3/uL (0.0-0.2); BASO % 0.6 % (0.0-1.0); EOS # 0.1 10^3/uL (0.0-0.5); EOS % 1.2 % (0.0-3.0); HEMATOCRIT 35.7 % (36.0-47.0); HEMOGLOBIN 11.8 g/dl (12.0-15.5); LYMPH # 5.9 10^3/uL (1.5-5.0); LYMPH % 51.3 % (24.0-44.0); MEAN CORPUSCULAR HEMOGLOBIN 30.1 pg (27.0-33.0); MEAN CORPUSCULAR HGB CONC 33.1 g/dl (32.0-36.5); MEAN CORPUSCULAR VOLUME 91.1 fl (80.0-96.0); MONO % 8.4 % (2.0-8.0); NEUTROPHILS # 4.3 10^3/uL (1.5-8.5); PLATELET COUNT, AUTOMATED 361 10^3/uL (150-450); RED BLOOD COUNT 3.92 10^6/uL (4.00-5.40); WHITE BLOOD COUNT 11.4 10^3/uL (4.0-10.0)
[2024-12-15 14:22] LABS: ERYTHROCYTE SEDIMENTATION RATE 50 mm/hr (0-30)
[2024-12-15 14:38] LABS: ALT/SGPT 47 U/L (7.0-40); AST/SGOT 32 U/L (<34); BLOOD UREA NITROGEN 18 MG/DL (9-23); C REACTIVE PROTEIN QUANTITATIV < 0.50 MG/DL (<1.0); CREATININE FOR GFR 0.84 MG/DL (0.55-1.30); GLOMERULAR FILTRATION RATE > 60.0 (>39)
== END ==
LOC: M PLALAB 11:23
PROVIDERS: ATTEND Nurse Practitioner
DX: Z79.899 Other long term (current) drug therapy (principal)

== ENCOUNTER → 2025-06-23 | Outpatient (CLI) | payer MEDICARE, OTHER ==
[~2025-06-23] MED LIST changes: +SLOW1TAB3 PO; -SLOWTAB2 PO
[2025-06-23 19:27] LABS: BASO # 0.1 10^3/uL (0.0-0.2); BASO % 0.7 % (0.0-1.0); EOS # 0.2 10^3/uL (0.0-0.5); EOS % 1.3 % (0.0-3.0); LYMPH # 5.6 10^3/uL (1.5-5.0); LYMPH % 49.2 % (24.0-44.0); MONO # 1.3 10^3/uL (0.0-0.8); MONO % 11.1 % (2.0-8.0); NEUTROPHILS # 4.2 10^3/uL (1.5-8.5); NEUTROPHILS % 37.3 % (36.0-66.0); PLATELET COUNT, AUTOMATED 366 10^3/uL (150-450)
[2025-06-23 19:34] LABS: ERYTHROCYTE SEDIMENTATION RATE 39 mm/hr (0-30)
[2025-06-23 20:03] LABS: ALT/SGPT 46 U/L (7.0-40); AST/SGOT 33 U/L (<34); C REACTIVE PROTEIN QUANTITATIV < 0.50 MG/DL (<1.0); CREATININE FOR GFR 0.96 MG/DL (0.55-1.30); GLOMERULAR FILTRATION RATE 60.9 (>39)
== END ==
LOC: M WUC 13:37
PROVIDERS: ATTEND Nurse Practitioner
DX: Z79.899 Other long term (current) drug therapy (principal)

== ENCOUNTER → 2025-08-03 | Outpatient (CLI) | payer MEDICARE, OTHER ==
[2025-08-03 18:36] LABS: ESTIMATED AVERAGE GLUCOSE 160.0 MG/DL (60-110)
[2025-08-03 18:43] LABS: CALCIUM LEVEL 9.5 MG/DL (8.3-10.6); CARBON DIOXIDE LEVEL 25.0 MMOL/L (20-31); CHLORIDE LEVEL 100.0 MMOL/L (98-107); CREATININE FOR GFR 0.97 MG/DL (0.55-1.30); GLOMERULAR FILTRATION RATE 59.8 (>39); POTASSIUM SERUM 4.2 MMOL/L (3.5-5.1); SODIUM LEVEL 137.0 MMOL/L (136-145)
[2025-08-03 18:45] LABS: CREATININE, URINE 53.3 MG/DL; MALB URINE SIEMENS < 3.0 MG/L
== END ==
LOC: M WUC 13:23
PROVIDERS: ATTEND Family Medicine
DX: I10 Essential (primary) hypertension (principal); E11.9 Type 2 diabetes mellitus without complications